=== PATIENT | female | born 1945 | race Caucasian/White ===

== ENCOUNTER → 2017-12-08 | Outpatient (CLI) | payer MEDICARE, OTHER ==
--- NOTE | 2017-12-13 17:58 | WOMENS IMAGING REPORT ---
EXAM DESCRIPTION: 3D SCREENING MAMMO BILAT COMPLETED DATE/TIME: 12/08/2017 1:54 pm REASON FOR STUDY: ENCNTR SCREEN MAMMOGRAM FOR MALIGNANT NEOPLASM OF BREAST Z12.31 ENCNTR SCREEN RUTH ANN MOGRAM FOR MALIGNANT NEOPLASM OF ADOLFO COMPARISON: 04/20/2016 TECHNIQUE: Standard craniocaudal and mediolateral oblique views of each breast recorded using digita l acquisition and breast tomosynthesis. LIMITATIONS: None. FINDINGS: Findings present which are benign by mammographic criteria. No suspicious masses, calcifi cations or architectural distortion. Pertinent benign findings: Stable benign bilateral breast parenchymal calcifications and small parenc hymal nodules. Read with the assistance of CAD. .[facility] - R2 Cenova Version 1.3 .[facility] Imaging - R2 Cenova Version 1.3 .[facility] Imaging - R2 Cenova Version 2.4 .[facility] - R2 Cenova Version 2.4 .[facility] - R2 [employer] Version 9.2 Benign mammographic findings may include one or more of the following: Smooth masses, popcorn/rim/co arse calcifications, asymmetries, post-procedure changes, and lesions with long-standing stability. IMPRESSION: BENIGN MAMMOGRAPHIC FINDINGS. BIRADS 2 BREAST DENSITY: b. There are scattered areas of fibroglandular density. BIRAD: 2 BENIGN FINDING(S) RECOMMENDATION: RECOMMENDATION: ROUTINE SCREENING Please continue yearly bilateral screening tomosynthesis in December 2018 COMMENT: The patient has been notified of the results by letter per SA requirements. Additional no tification policies are in place for contacting patient with suspicious or incomplete findings. Quality ID #[id number]: The [employer] recommends an annual screening mammogram for women aged 40 years or over. This facility utilizes a reminder system to ensure that all patients receive reminder letters, and/or direct phone calls for appointments. This includes reminders for routine scr eening mammograms, diagnostic mammograms, or other Breast Imaging Interventions when appropriate. Th is patient will be placed in the appropriate reminder system. The [employer] (ACR) has developed recommendations for screening MRI of the breast s in certain patient populations, to be used in conjunction with mammography. Breast MRI surveillanc e may be appropriate for women with more than 20% lifetime risk of developing breast cancer as deter mined by genetic testing, significant family history of the disease, or history of mantle radiation f or Hodgkins Disease. ACR Practice Guidelines 2008. DBT Technology DBT is a type of tomographic mammography. With conventional mammography, overlapping breast tissue ma y make lesions difficult to detect, even with good compression. DBT uses an x-ray tube that rotates a round the breast, taking images at different angles. These images are then combined to create thin sl ices of the breast that the radiologist can view as a 3D reconstruction. The Hologic unit can perform full-field digital mammograms (2D imaging); or DBT (3D imaging); or both, in a combination mode that quickly performs both the mammogram and the tomosynthesis scan while the breast is still compressed. PQRS 6045F: Fluoroscopic imaging is not utilized for breast tomosynthesis. TECHNICAL DOCUMENTATION: FINDING NUMBER: (1) ASSESSMENT: (1) JOB ID: [id number] [employer]- All Rights Reserved Reading location - IP/workstation name: [email or web address]
== END ==
LOC: WI 13:20
PROVIDERS: ATTEND Nurse Practitioner Primary Care
DX: Z12.31 Encounter for screening mammogram for malignant neoplasm of breast (principal)
CPT/HCPCS: 77063; 77067

== ENCOUNTER 2018-08-26 09:09 | Emergency (ER) | payer MEDICARE, OTHER ==
--- NOTE | 2018-08-26 09:45 | ER Document Report ---
ED Medical Screen (RME) - General Chief Complaint: Flank Pain Stated Complaint: BACK PAIN Time Seen by Provider: 08/26/18 09:43 Mode of Arrival: Ambulatory Information source: Patient TRAVEL OUTSIDE OF THE U[place]. IN LAST 30 DAYS: No - HPI Patient complains to provider of: R flank/back pain Onset: Other - Pt. 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 Denies: Hx Coronary Artery Disease, Hx Hypertension Pulmonary Medical History: Reports: Hx Pneumonia - YRS AGO Denies: Hx Asthma, Hx Bronchitis, Hx COPD Neurological Medical History: Denies: Hx Cerebrovascular Accident, Hx Seizures Musculoskeltal Medical History: Denies Hx Arthritis - Immunizations Hx Diphtheria, Pertussis, Tetanus Vaccination: Yes Physical Exam - Vital signs Vitals: Temp Pulse Resp BP Pulse Ox 98.7 F 83 18 135/79 H 99 08/26/18 09:19 08/26/18 09:19 08/26/18 09:19 08/26/18 09:19 08/26/18 09:19 Course - Vital Signs Vital signs: Temp Pulse Resp BP Pulse Ox 98.7 F 83 18 135/79 H 99 08/26/18 09:19 08/26/18 09:19 08/26/18 09:19 08/26/18 09:19 08/26/18 09:19 Doctor's Discharge - Discharge Referrals: AROLDO GAN NP [Primary Care Provider] - Follow up as needed
[2018-08-26] MEDS ORDERED: IBUPROFEN 600 MG TABLET PO ONE (10:50)
[2018-08-26] MEDS ORDERED: OXYCODONE-ACETAMINOPHEN 5-325 MG TABLET PO ONE (10:50)
--- NOTE | 2018-08-26 10:51 | ER Document Report ---
ED General - General Chief Complaint: Flank Pain Stated Complaint: BACK PAIN Time Seen by Provider: 08/26/18 09:43 Mode of Arrival: Ambulatory Notes: 73-year-old female patient emergency department chief complaint of right flank pain. Patient states pain is been present for about 3 days. Radiating from the back around to the front. No fever or chills. Generally does not feel well though. Noticed this morning that she had a rash on the back and then on the right front chest but thought it was related to the heating pad she has been wearing. Has not put any lotions or creams on her back or chest. TRAVEL OUTSIDE OF THE [place] IN LAST 30 DAYS: No - HPI Onset: Other - 3 days ago Onset/Duration: Gradual, Constant, Worse Quality of pain: Achy Severity: Moderate Pain Level: 3 Associated symptoms: None - Related Data Allergies/Adverse Reactions: erythromycin base Allergy (Verified 08/26/18 09:11) STOMACH PAIN Sulfa (Sulfonamide Antibiotics) Allergy (Verified 08/26/18 09:11) Past Medical History - General Information source: Patient - Social History Smoking Status: Current Every Day Smoker Chew tobacco use (# tins/day): No Frequency of alcohol use: None Drug Abuse: None Family History: Reviewed & Not Pertinent Patient has suicidal ideation: No Patient has homicidal ideation: No - Past Medical History Cardiac Medical History: Reports: Hx Heart Attack - 2015 MINOR HEART ATTACK R/T STRESS PER PT Denies: Hx Coronary Artery Disease, Hx Hypertension Pulmonary Medical History: Reports: Hx Pneumonia - YRS AGO Denies: Hx Asthma, Hx Bronchitis, Hx COPD Neurological Medical History: Denies: Hx Cerebrovascular Accident, Hx Seizures Renal/ Medical History: Denies: Hx Peritoneal Dialysis Musculoskeletal Medical History: Denies Hx Arthritis - Immunizations Hx Diphtheria, Pertussis, Tetanus Vaccination: Yes Hx Pneumococcal Vaccination: 09/12/16 Review of Systems - Review of Systems Notes: Constitutional: denies: Chills, Diaphoresis, Fever, Malaise, Weakness EENT: denies: Eye discharge, Blurred vision, Tearing, Double vision, Nose congestion, Nose discharge, Throat swelling, Mouth pain Cardiovascular: denies: Palpitations, Heart racing, Orthopnea, Dyspnea, Chest pain Respiratory: denies: Cough, Hurts to breathe, Wheezing, Shortness of breath Gastrointestinal: denies: Abdominal pain, Diarrhea, Nausea, Vomiting, Black stools, bright red blood in stool Genitourinary: denies: Burning, Dysuria, Discharge, Frequency, Flank pain, Hematuria Musculoskeletal: denies: Joint pain, Joint swelling, Muscle pain, Muscle stiffness,. Positive for right-sided back pain Hematologic/Lymphatic: denies: Anemia, Easy bleeding, Easy bruising, Blood clots Neurological/Psychological: denies: Confusion, Dementia, Depression, Loss of consciousness Skin: No lesions, no masses, no skin breakdown, no abscesses Physical Exam - Vital signs Vitals: Temp Pulse Resp BP Pulse Ox 98.7 F 83 18 135/79 H 99 08/26/18 09:19 08/26/18 09:19 08/26/18 09:19 08/26/18 09:19 08/26/18 09:19 Interpretation: Normal - General General appearance: Appears well, Alert - HEENT Head: Normocephalic, Atraumatic Eyes: Normal Pupils: PERRL - Respiratory Respiratory status: No respiratory distress Chest status: Nontender Breath sounds: Normal Chest palpation: Normal - Cardiovascular Rhythm: Regular Heart sounds: Normal auscultation Murmur: No - Abdominal Inspection: Normal Distension: No distension Bowel sounds: Normal Tenderness: Nontender Organomegaly: No organomegaly - Back Back: Normal, Nontender - Extremities General upper extremity: Normal inspection, Nontender, Normal color, Normal ROM , Normal temperature General lower extremity: Normal inspection, Nontender, Normal color, Normal ROM , Normal temperature, Normal weight bearing. No: Anastasiya's sign - Neurological Neuro grossly intact: Yes Cognition: Normal Orientation: AAOx4 Mitchell Coma Scale Eye Opening: Spontaneous Mitchell Coma Scale Verbal: Oriented [place] Coma Scale Motor: Obeys Commands Mitchell Coma Scale Total: 15 Speech: Normal Motor strength normal: LUE, RUE, LLE, RLE Sensory: Normal - Psychological Associated symptoms: Normal affect, Normal mood - Skin Skin Temperature: Warm Skin Moisture: Dry Skin Color: Other - There are multiple areas that appear to be red and acute early vesicular lesions consistent with what you would see with shingles. Course - Re-evaluation Re-evalutation: 08/26/18 11:44 CT scan was ordered from the front and performed prior to me evaluating her. My evaluation is consistent with shingles. Will check her urine as well. I have given her pain medication. Likely will start her on some antivirals. 08/26/18 11:[address] 08/26/18 09:43 IMPRESSION: Mild bilateral UPJ dilatation, probably congenital. No urinary tract stones identified. 08/26/18 12:40 Laboratory 08/26/18 10:50 Urine Color YELLOW Urine Appearance SLIGHTLY-CLOUDY Urine pH 6.0 Ur Specific [place] 1.017 Urine Protein NEGATIVE Urine Glucose (UA) NEGATIVE Urine Ketones NEGATIVE Urine Blood NEGATIVE Urine Nitrite NEGATIVE Urine Bilirubin NEGATIVE Urine Urobilinogen 2.0 H Ur Leukocyte Esterase LARGE H Urine WBC (Auto) 17 Urine RBC (Auto) 3 Squamous Epi Cells Auto 1 Urine Mucus (Auto) MANY Urine Ascorbic Acid NEGATIVE - Vital Signs Vital signs: Temp Pulse Resp BP Pulse Ox 98.7 F 83 18 135/79 H 99 08/26/18 09:19 08/26/18 09:19 08/26/18 09:19 08/26/18 09:19 08/26/18 09:19 - Laboratory Laboratory results interpreted by me: 08/26/18 10:50 Urine Urobilinogen 2.0 H Ur Leukocyte Esterase LARGE H Discharge - Discharge Clinical Impression: Shingles rash Qualifiers: Herpes zoster complications: without complications Qualified Code(s): B02.9 - Zoster without complications Urinary tract infection Qualifiers: Urinary tract infection type: acute cystitis Hematuria presence: without hematuria Qualified Code(s): N30.00 - Acute cystitis without hematuria Condition: Good Disposition: HOME, SELF-CARE Instructions: Shingles ([facility]), Urinary Tract Infection ([facility]) Prescriptions: Hydrocodone/Acetaminophen [[place] 5-325 mg Tablet] 1 tab PO TID 5 Days #15 tablet Nitrofurantoin/Nitrofuran Mac [Macrobid 100 mg Capsule] 1 tab PO BID #20 capsule Valacyclovir HCl [Valtrex] 1,000 mg PO Q8H 7 Days #21 tablet Referrals: AROLDO GAN NP [Primary Care Provider] - Follow up in 3-5 days
--- NOTE | 2018-08-26 11:00 | RADIOLOGY REPORT (SQ) ---
EXAM DESCRIPTION: CT LTD RENAL STONE PROTOCOL ON COMPLETED DATE/TIME: 08/26/2018 10:44 am REASON FOR STUDY: R flank pain COMPARISON: None. TECHNIQUE: CT scan of the abdomen and pelvis performed without intravenous or oral contrast. Images reviewed with lung, soft tissue, and bone windows. Reconstructed coronal and sagittal MPR images revi ewed. All images stored on PACS. All CT scanners at this facility use dose modulation, iterative reconstruction, and/or weight based d osing when appropriate to reduce radiation dose to as low as reasonably achievable (ALARA). [facility]: Dose Right [facility]: CareDose [facility]: Dose Right [facility]: Teradose 4D [facility]: Smart Blyk RADIATION DOSE: CT Rad equipment meets quality standard of care and radiation dose reduction techniq ues were employed. CTDIvol: 4.9 mGy. DLP: 271 mGy-cm.mGy. LIMITATIONS: None. FINDINGS: LOWER CHEST: No significant findings. No nodules or infiltrates. NON-CONTRASTED LIVER, SPLEEN, ADRENALS: Evaluation limited by lack of IV contrast. No identified sign ificant masses. PANCREAS: No masses. No peripancreatic inflammatory changes. GALLBLADDER: No identified stones by CT criteria. No inflammatory changes to suggest cholecystitis. RIGHT KIDNEY AND URETER: No suspicious masses. Assessment limited by lack of IV contrast. No signif icant calcifications. Mild dilatation of the UPJ which is symmetric with the left. LEFT KIDNEY AND URETER: No suspicious masses. Assessment limited by lack of IV contrast. No signifi cant calcifications. Mild dilatation of the UPJ. AORTA AND RETROPERITONEUM: No aneurysm. No retroperitoneal masses or adenopathy. BOWEL AND PERITONEAL CAVITY: No obvious masses or inflammatory changes. No free fluid. APPENDIX: Surgically absent. PELVIS, BLADDER, AND ABDOMINAL WALL:No abnormal masses. No free fluid. Bladder normal. BONES: No significant findings. OTHER: No other significant finding. IMPRESSION: Mild bilateral UPJ dilatation, probably congenital. No urinary tract stones identified. COMMENT: Quality ID # [id number]: Final reports with documentation of one or more dose reduction techniques (e.g., Automated exposure control, adjustment of the mA and/or kV according to patient size, use of iterative reconstruction technique) TECHNICAL DOCUMENTATION: JOB ID: [id number] [employer]- All Rights Reserved Reading location - IP/workstation name: [email or web address]
[2018-08-26 12:26] LABS: APPEARANCE,URINE SLIGHTLY-CLOUDY; BILIRUBIN,URINE NEGATIVE (NEGATIVE); COLOR,URINE YELLOW; GLUCOSE, URINE NEGATIVE (NEGATIVE); KETONES,URINE NEGATIVE (NEGATIVE); LEUKOCYTE ESTERASE,URINE LARGE (NEGATIVE); NITRITE,URINE NEGATIVE (NEGATIVE); PROTEIN,URINE NEGATIVE (NEGATIVE); URINE SPECIFIC GRAVITY 1.017
[2018-08-26] MEDS ORDERED: NITROFURANTOIN MONOHYD/M-CRYST 100 MG CAPSULE PO ONE (12:41)
[2018-08-26 13:49] VITALS: BP 146/96
== END 2018-08-26 13:56 | disposition home or self-care (01) ==
LOC: ER 09:09
DX: B02.9 Zoster without complications (principal); N30.00 Acute cystitis without hematuria; R10.9 Unspecified abdominal pain; M54.9 Dorsalgia, unspecified; F17.200 Nicotine dependence, unspecified, uncomplicated; I25.2 Old myocardial infarction
CPT/HCPCS: 99284; 81001; 76380; A9270 ×3; J8499

== ENCOUNTER 2019-09-09 21:19 | Inpatient (IN) | payer MEDICARE, OTHER ==
--- NOTE | 2019-09-09 22:50 | RADIOLOGY REPORT (SQ) ---
EXAM DESCRIPTION: XR HIP 2 OR MORE VIEWS COMPLETED DATE/TME: 09/09/2019 21:23 CLINICAL HISTORY: 74 years, Female, fall with injury and pain COMPARISON: None. NUMBER OF VIEWS: 2 TECHNIQUE: AP pelvis single view left hip LIMITATIONS: None. FINDINGS: Osteopenia. Left subcapital hip fracture with slight varus angulation. No dislocation. Rotation of the greater trochanter. IMPRESSION: Left subcapital hip fracture as above copyright 2010 [employer]- All Rights Reserved
--- NOTE | 2019-09-09 22:59 | RADIOLOGY REPORT (SQ) ---
EXAM DESCRIPTION: XR SHOULDER 2 OR MORE VIEWS COMPLETED DATE/TME: 09/09/2019 21:23 CLINICAL HISTORY: 74 years, Female, fall with injury and pain COMPARISON: None. NUMBER OF VIEWS: 1 TECHNIQUE: Single view left shoulder LIMITATIONS: None. FINDINGS: Inferior dislocation of the humeral head relative to the bony glenoid. Osteopenia. Displaced fracture deformity of the greater tuberosity of the humerus. IMPRESSION: Inferior dislocation of the humerus with displaced fracture of the greater tuberosity copyright 2010 [employer]- All Rights Reserved
[2019-09-09] MEDS ORDERED: ONDANSETRON HCL INJ/PF 4 MG/2 ML SDV IV ONE (23:18)
[2019-09-09] MEDS ORDERED: MORPHINE SULFATE 10 MG/ML INJ IV ONE (23:18)
[2019-09-09] MEDS ORDERED: ZOLPIDEM TARTRATE 5 MG TABLET PO PRN (23:52)
[2019-09-09] MEDS ORDERED: MAG HYDROX/AL HYDROX/SIMETH SUSP 30 ML UDCUP PO PRN (23:52)
--- NOTE | 2019-09-09 23:56 | ER Document Report ---
ED Fall - General Chief Complaint: Fall Injury Stated Complaint: FALL Time Seen by Provider: 09/09/19 22:50 Mode of Arrival: Medic TRAVEL OUTSIDE OF THE [place] IN LAST 30 DAYS: No - HPI Occurred: Just prior to arrival Where: Indoors Context: Tripped Location of injury/pain: Hip - Patient reports she was at a friend's house and actually is unsure what caused her to fall other than she believes there may hav e been something she tripped on in the house. There was no loss of consciousness head or neck injury. Denies any back pain patient reports she has pain in her left. Shoulder and also on her left hip., Shoulder Quality of pain: Achy Severity: Severe Pain Level: 5 Prehospital interventions: Other - There are no open wounds. Patient has greatest tenderness noted in left shoulder and is unable to have range of motion of her left shoulder. Also unable to stand and walk. 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 Denies: Hx Coronary Artery Disease, Hx Hypertension Pulmonary Medical History: Reports: Hx Pneumonia - YRS AGO Denies: Hx Asthma, Hx Bronchitis, Hx COPD Neurological Medical History: Denies: Hx Cerebrovascular Accident, Hx Seizures Renal/ Medical History: Denies: Hx Peritoneal Dialysis Musculoskeletal Medical History: Denies Hx Arthritis - Immunizations Hx Diphtheria, Pertussis, Tetanus Vaccination: Yes Hx Pneumococcal Vaccination: 09/12/16 Review of Systems - Review of Systems Constitutional: No symptoms reported EENT: No symptoms reported, See HPI Cardiovascular: No symptoms reported Respiratory: No symptoms reported Gastrointestinal: No symptoms reported Genitourinary: No symptoms reported Female Genitourinary: No symptoms reported Musculoskeletal: See HPI Skin: No symptoms reported Hematologic/Lymphatic: No symptoms reported Neurological/Psychological: No symptoms reported Physical Exam - Vital signs Vitals: Pulse Ox 97 09/09/19 21:27 Interpretation: Normal - General General appearance: Appears well, Alert - HEENT Head: Normocephalic, Atraumatic Eyes: Normal Pupils: PERRL - Respiratory Respiratory status: No respiratory distress Chest status: Nontender Breath sounds: Normal Chest palpation: Normal - Cardiovascular Rhythm: Regular Heart sounds: Normal auscultation Murmur: No - Abdominal Inspection: Normal Distension: No distension Bowel sounds: Normal Tenderness: Nontender Organomegaly: No organomegaly - Back Back: Normal, Nontender - Extremities General upper extremity: Normal inspection, Nontender, Normal color, Normal ROM, Normal temperature General lower extremity: Normal inspection, Nontender, Normal color, Normal ROM, Normal temperature, Normal weight bearing, Other - Left hip deformed and moderately tender. No skin break noted.. No: Anastasiya's sign Shoulder: Deformity, Limited ROM, Other - Left shoulder with obvious deformity and decreased range of motion. Severely tender to palpation and movement. - Neurological Neuro grossly intact: Yes Cognition: Normal Orientation: AAOx4 Mitchell Coma Scale Eye Opening: Spontaneous [place] Coma Scale Verbal: Oriented Mitchell Coma Scale Motor: Obeys Commands [place] Coma Scale Total: 15 Speech: Normal Motor strength normal: LUE, RUE, LLE, RLE Sensory: Normal - Psychological Associated symptoms: Normal affect, Normal mood - Skin Skin Temperature: Warm Skin Moisture: Dry Skin Color: Normal Course - Re-evaluation Re-evalutation: 09/10/19 01:56 Successful closed reduction of left inferior dislocated shoulder. Post x-rays showed humerus and glenoid fossa correctly. Patient tolerated procedure well with no complications. - Vital Signs Vital signs: Temp Pulse Resp BP Pulse Ox 98.3 F 85 18 109/81 95 09/10/19 02:47 09/10/19 02:47 09/10/19 02:47 09/10/19 02:47 09/10/19 02:47 - Laboratory Result Diagrams: 09/09/19 23:56 09/09/19 23:56 Laboratory results interpreted by me: 09/09/19 09/09/19 09/10/19 23:56 23:56 00:12 WBC 11.1 H MCV 99 H Absolute Neuts (auto) 8.9 H Seg Neutrophils % 80.6 H Carbon Dioxide 21 L Glucose 116 H Creatine Kinase 220 H Urine Glucose (UA) 50 H Urine Blood SMALL H Ur Leukocyte Esterase MODERATE H - Diagnostic Test Radiology reviewed: Image reviewed, Reports reviewed Procedures - Conscious Sedation Conscious sedation Consent obtained: Yes Prior complications: Procedural sedation Normal healthy pt.: P1. - ASA Classification Airway Evaluation: Normal anatomy, Other - Edentulous Mallampati Classification: Class 1 Used during procedure: IV access obtained, Pulse ox on pt. Medications administered: Ketamine Reversal agents: None I personally performed/intraservice time: Sedation, 30 min or less Complications: No Notes: Under conscious sedation using IV ketamine patient had a close reduction of her left shoulder dislocation and fracture. Patient tolerated procedure well and had no complications hemodynamically or respiratory justice. Post procedure x-ray showed normal alignment and reduction of the dislocation of the left shoulder. Also of note was an improvement in the proximity of the fracture of the lateral greater tuberosity fracture.. Discharge - Discharge Clinical Impression: Hip fracture, left, Shoulder fracture, left, Dislocated shoulder Disposition: ADMITTED INPATIENT Admitting Provider: henderson Unit Admitted: Surgical Floor
--- NOTE | 2019-09-10 | RADIOLOGY REPORT (SQ) ---
EXAM DESCRIPTION: XR CHEST 1 VIEW COMPLETED DATE/TME: 09/09/2019 23:13 CLINICAL HISTORY: 74 years, Female, trauma COMPARISON: None. NUMBER OF VIEWS: 1 TECHNIQUE: Portable chest LIMITATIONS: None. FINDINGS: Heart size normal. Osteopenia. Lungs clear. No pneumothorax IMPRESSION: No acute cardiopulmonary process copyright 2010 [employer]- All Rights Reserved
[2019-09-10] MEDS ORDERED: KETAMINE HCL INJ 500 MG/10 ML VIAL IV ONE ×2 (00:04→01:11)
[2019-09-10] MEDS ORDERED: TRAMADOL HCL 50 MG TABLET PO PRN (00:05)
[2019-09-10] MEDS ORDERED: OXYCODONE HCL IR 5 MG TABLET PO PRN (00:06)
[2019-09-10] MEDS ORDERED: MORPHINE SULFATE 10 MG/ML INJ IV PRN (00:08)
[2019-09-10] MEDS ORDERED: DIPHENHYDRAMINE HCL 50 MG CAPSULE PO PRN ×2 (00:09→00:30)
[2019-09-10 00:41] LABS: ABSOLUTE BASOPHILS # (AUTO) 0.1 10^3/uL (0.0-0.2); ABSOLUTE LYMPHOCYTES (AUTO) 1.6 10^3/uL (0.5-4.7); ABSOLUTE MONOCYTES (AUTO) 0.5 10^3/uL (0.1-1.4); ABSOLUTE NEUT (AUTO) 8.9 10^3/uL (1.7-8.2); BASOPHILS % (AUTO) 0.5 % (0-2); EOSINOPHILS % (AUTO) 0.2 % (0-6); HEMATOCRIT 38.4 % (36.0-47.0); HEMOGLOBIN 12.9 g/dL (12.0-15.5); LYMPHOCYTES % (AUTO) 14.2 % (13-45); MEAN CORPUSCULAR HEMOGLOBIN 33.4 pg (27.0-33.4); MEAN CORPUSCULAR HGB CONC 33.7 g/dL (32.0-36.0); MEAN CORPUSCULAR VOLUME 99 fl (80-97); MONOCYTES % (AUTO) 4.5 % (3-13); PLATELET COUNT 274 10^3/uL (150-450); RED BLOOD COUNT 3.87 10^6/uL (3.72-5.28); RED CELL DISTRIBUTION WIDTH 13.9 % (11.5-14.0); SEGMENTED NEUTROPHILS % (AUTO) 80.6 % (42-78); TOTAL CELLS COUNTED % (AUTO) 100 %; WHITE BLOOD COUNT 11.1 10^3/uL (4.0-10.5)
[2019-09-10 00:54] LABS: ALBUMIN 4.2 g/dL (3.5-5.0); ALCOHOL 111 mg/dL (NONE DETECTED); ALKALINE PHOSPHATASE 85 U/L (38-126); ANION GAP 15 (5-19); ASPARTATE AMINO TRANSFERASE 27 U/L (14-36); BILIRUBIN,DIRECT 0.2 mg/dL (0.0-0.4); BILIRUBIN,TOTAL 0.2 mg/dL (0.2-1.3); BLOOD UREA NITROGEN 14 mg/dL (7-20); CALCIUM 9.2 mg/dL (8.4-10.2); CARBON DIOXIDE 21 mmol/L (22-30); CHLORIDE 105 mmol/L (98-107); CREATINE KINASE 220 U/L (30-135); GLUCOSE 116 mg/dL (75-110); POTASSIUM 4.1 mmol/L (3.6-5.0)
[2019-09-10 00:56] LABS: INTERNATIONAL RATION (INR) 0.97; PARTIAL THROMBOPLASTIN TIME 31.4 SEC (23.5-35.8); PROTHROMBIN TIME 12.9 SEC (11.4-15.4)
[2019-09-10 01:10] LABS: APPEARANCE,URINE CLEAR; BILIRUBIN,URINE NEGATIVE (NEGATIVE); COLOR,URINE STRAW; GLUCOSE, URINE 50 mg/dL (NEGATIVE); KETONES,URINE NEGATIVE (NEGATIVE); LEUKOCYTE ESTERASE,URINE MODERATE (NEGATIVE); NITRITE,URINE NEGATIVE (NEGATIVE); PROTEIN,URINE NEGATIVE (NEGATIVE); URINE SPECIFIC GRAVITY 1.006; UROBILINOGEN,URINE NEGATIVE mg/dL (<2.0)
[2019-09-10 01:17] LABS: URINE AMPHETAMINES SCREEN NEGATIVE; URINE BARBITURATES SCREEN NEGATIVE; URINE BENZODIAZEPINES SCREEN NEGATIVE; URINE COCAINE SCREEN NEGATIVE; URINE MARIJUANA (THC) SCREEN NEGATIVE; URINE METHADONE SCREEN NEGATIVE; URINE PHENCYCLIDINE SCREEN NEGATIVE
--- NOTE | 2019-09-10 01:53 | RADIOLOGY REPORT (SQ) ---
EXAM: X-ray shoulder one view CLINICAL DATA: Status post reduction left shoulder TECHNICAL DATA: A single portable AP view of the left shoulder was performed on 09/10/2019 at 1:26 AM. COMPARISONS: 09/09/2019 at 10:17 PM FINDINGS: When compared to the prior study, there has been interval reduction of the left shoulder dislocation. Again demonstrated is a mildly displaced fracture through the greater tuberosity. The acromioclavicular joint is intact. No significant degenerative or arthritic changes are identified. There are no pathologic lytic or sclerotic bone lesions. Bone mineralization is slightly diminished. No focal soft tissue abnormalities are identified. IMPRESSION: 1. Interval reduction of the left shoulder dislocation. 2. Mildly displaced fracture through the greater tuberosity. 3. Mild diffuse bone demineralization.
[2019-09-10] MEDS: MORPHINE SULFATE 10 MG/ML INJ IV PRN ×5 (03:16→23:34)
[2019-09-10] MEDS: ACETAMINOPHEN 325 MG TABLET PO SCH ×5 (03:39→23:35)
[2019-09-10] MEDS: ONDANSETRON 4 MG TAB.RAPDIS PO PRN ×2 (03:47→10:08)
[2019-09-10] MEDS: PANTOPRAZOLE SODIUM 20 MG TABLET.DR PO SCH (05:10)
[2019-09-10] MEDS ORDERED: CEFAZOLIN 2 GM/D5W RTU 2 GM/50 ML RTUPB IV SCH (06:00)
[2019-09-10] MEDS ORDERED: CEFAZOLIN SODIUM 2 GM in DEXTROSE 5%-WATER 100 ML IV PRN (07:17)
--- NOTE | 2019-09-10 08:03 | EKG REPORT ---
SEVERITY:- BORDERLINE ECG - SINUS RHYTHM DIFFUSE NONSPECIFIC ST-T CHANGES : Confirmed by: Duc Marie MD 10-Sep-2019 08:03:00
--- NOTE | 2019-09-10 08:04 | EKG REPORT ---
SEVERITY:- BORDERLINE ECG - SINUS RHYTHM DIFFUSE NONSPECIFIC ST-T CHANGES : Confirmed by: Duc Marie MD 10-Sep-2019 08:03:50
[2019-09-10] MEDS: OXYCODONE HCL IR 5 MG TABLET PO PRN ×3 (10:07→20:53)
[2019-09-10] MEDS: ENOXAPARIN SODIUM INJ 30 MG/0.3 ML DISP.SYRIN SUBCUT SCH (10:08)
[2019-09-10] MEDS: DOCUSATE SODIUM 100 MG CAPSULE PO SCH (10:08)
[2019-09-10] MEDS ORDERED: (PENDING PHARMACY ID) (Lisinopril [Prinivil 2.5 Mg Tablet] 2.5 MG) PO PRN (12:29)
--- NOTE | 2019-09-10 12:41 | Progress Note ---
Provider Note Provider Note: History and Physical Patient Name: DONALD BUSTAMANTE Date of : 1945 Patient Status: Inpatient Attending Provider: MARY MEDINA JR Date: 09/10/19 12:30 Initialization Date: 09/10/19 12:30 Orthopedic History and Physical Date: 09/10/19 Attending physician:: MARY MEDINA JR Provider Consulted: MARY MEDINA JR Consult reason:: History and Physical. History of Present Illness Admission Date/PCP: 09/10/19 00:54 AROLDO GAN NP Patient complains of: Left shoulder pain, left hip pain History of Present Illness: DONALD BUSTAMANTE is a 74 year old female who was brought to the emergency depar tment after a fall at home. She is unsure exactly how she fell but she tripped and landed on her left side, resulting in both severe left shoulder pain and 8 out of 10 left hip pain leading to the inability to ambulate. Pain is constant and worse with any motion. Pain medication improves the pain. She was brought to the hospital and x-rays were taken that demonstrate both a dislocated left shoulder as well as a left intertrochanteric hip fracture. The emergency department reduced her shoulder and subsequent films show a concentrically reduced shoulder. She denies prior loss of consciousness head injury or syncopal-like episode, she denies current altered sensorium. Past Medical History Cardiac Medical History: Reports: Myocardial Infarction - 2015 MINOR HEART ATTACK R/T STRESS PER PT Denies: Coronary Artery Disease, Hypertension Pulmonary Medical History: Reports: Pneumonia - YRS AGO Denies: Asthma, Bronchitis, Chronic Obstructive Pulmonary Disease (COPD) Neurological Medical History: Reports: None Denies: Seizures Endocrine Medical History: Reports: None Renal/ Medical History: Reports: None Malignancy Medical History: Reports: None GI Medical History: Reports: None Musculoskeltal Medical History: Denies: Arthritis Skin Medical History: Reports: None Psychiatric Medical History: Reports: None Traumatic Medical History: Reports: None Hematology: Denies: Anemia Infectious Medical History: Reports: None Social History Lives with: Alone Smoking Status: Current Every Day Smoker Cigarettes Packs Per Day: 1 Number of Years Smokin Frequency of Alcohol Use: Occasional Hx Recreational Drug Use: No - Advance Directive Resuscitation Status: Full Code Family History Family History: Reviewed & Not Pertinent Parental Family History Reviewed: No Children Family History Reviewed: NA Sibling(s) Family History Reviewed.: NA Medication/Allergy Home Medications: Atorvastatin Calcium [Lipitor 10 mg Tablet] 10 mg PO ASDIR 02/17/18 Ibuprofen 200 mg PO DAILYP PRN 09/10/19 Lisinopril [Prinivil 2.5 mg Tablet] 2.5 mg PO DAILYP PRN 09/10/19 Allergies/Adverse Reactions: erythromycin base Allergy (Verified 08/26/18 09:11) STOMACH PAIN Sulfa (Sulfonamide Antibiotics) Allergy (Verified 08/26/18 09:11) Review of Systems Review of Systems: Constitutional: ABSENT: anorexia, chills, night sweats Cardiovascular: ABSENT: chest pain Respiratory: ABSENT: dyspnea Gastrointestinal: ABSENT: vomiting Genitourinary: ABSENT: dysuria Integumentary: ABSENT: rash Neurological: ABSENT: confusion, memory loss, numbness Psychiatric: ABSENT: hallucinations Hematologic/Lymphatic: ABSENT: easy bleeding Physical Exam Vital Signs: Temp Pulse Resp BP Pulse Ox 97.2 F 83 19 159/74 H 96 09/10/19 11:03 09/10/19 11:03 09/10/19 11:03 09/10/19 11:03 09/10/19 11:03 Intake & Output 09/09/19 09/10/19 09/11/19 06:59 06:59 06:59 Output Total 550 Balance -550 Weight 60.3 kg Physical Exam: General appearance: PRESENT: no acute distress, cooperative, well-nourished Head exam: PRESENT: atraumatic, normocephalic Eye exam: PRESENT: EOMI Ear exam: PRESENT: normal external ear exam Mouth exam: PRESENT: neck supple Neck exam: ABSENT: tracheal deviation Respiratory exam: PRESENT: symmetrical, unlabored. ABSENT: accessory muscle use, wheezes Pulses: PRESENT: normal radial pulses, normal dorsalis pedis pulse Vascular exam: PRESENT: normal capillary refill GI/Abdominal exam: ABSENT: distended, firm Extremities exam: PRESENT: full ROM of bilateral shoulders, elbows wrists, knees, hips and ankles without pain Musculoskeletal exam: PRESENT: full ROM, normal inspection of all 4 extremities aside from that noted below. Neurological exam: PRESENT: alert, awake, oriented to person, oriented to place, oriented to time Psychiatric exam: PRESENT: appropriate affect. ABSENT: agitated Focused psych exam: ABSENT: catatonic Skin exam: PRESENT: intact. ABSENT: dry All as above aside from that noted in the HPI and the following: LUE Left upper extremity sensation grossly intact to radial median and ulnar nerve. Left upper extremity motor function grossly intact to radian median ulnar nerve AIN and PIN Pulses 2+, capillary refill less than 2 seconds No deformity noted full range of motion of the elbow wrist and fingers without pain Compartments soft, no tenderness to palpation skin intact Left shoulder was in sling at time of exam, some tenderness to palpation about the shoulder. Left lower extremity -Pulses 2+ distally -Compartments soft -Sensation grossly intact to L3-4-5 S1 -Motor grossly intact to EHL TA gastroc and quad -Pain with any range of motion of the left hip Results Laboratory Results: 09/09/19 23:56 09/09/19 23:56 09/09/19 09/09/19 09/09/19 23:56 23:56 23:56 WBC 11.1 H RBC 3.87 Hgb 12.9 Hct 38.4 MCV 99 H MCH 33.4 MCHC 33.7 RDW 13.9 Plt Count 274 Seg Neutrophils % 80.6 H Sodium 140.5 Potassium 4.1 Chloride 105 Carbon Dioxide 21 L Anion Gap 15 BUN 14 Creatinine 0.69 Est GFR ( Amer) > 60 Glucose 116 H Calcium 9.2 Total Bilirubin 0.2 AST 27 Alkaline Phosphatase 85 Total Protein 7.0 Albumin 4.2 Urine Color Urine Appearance Urine pH Ur Specific [place] Urine Protein Urine Glucose (UA) Urine Ketones Urine Blood Urine Nitrite Ur Leukocyte Esterase Urine WBC (Auto) Urine RBC (Auto) Blood Type O POSITIVE Antibody Screen NEGATIVE 09/10/19 00:12 WBC RBC Hgb Hct MCV MCH MCHC RDW Plt Count Seg Neutrophils % Sodium Potassium Chloride Carbon Dioxide Anion Gap BUN Creatinine Est GFR ( Amer) Glucose Calcium Total Bilirubin AST Alkaline Phosphatase Total Protein Albumin Urine Color STRAW Urine Appearance CLEAR Urine pH 5.0 Ur Specific [place] 1.006 Urine Protein NEGATIVE Urine Glucose (UA) 50 H Urine Ketones NEGATIVE Urine Blood SMALL H Urine Nitrite NEGATIVE Ur Leukocyte Esterase MODERATE H Urine WBC (Auto) 6 Urine RBC (Auto) 7 Blood Type Antibody Screen 09/09/19 09/09/19 23:56 23:56 Creatine Kinase 220 H Troponin I < 0.012 Impressions: Hip X-Ray 09/09/19 21:23 IMPRESSION: Left subcapital hip fracture as above copyright 2010 [email or web address]- All Rights Reserved Chest X-Ray 09/09/19 23:13 IMPRESSION: No acute cardiopulmonary process copyright 2010 [email or web address]- All Rights Reserved Shoulder X-Ray 09/10/19 01:20 IMPRESSION: 1. Interval reduction of the left shoulder dislocation. 2. Mildly displaced fracture through the greater tuberosity. 3. Mild diffuse bone demineralization. Assessment & Plan - Diagnosis (1) Hip fracture, left Plan: At this time we will plan for left hip hemiarthroplasty to be performed on 09/11/2019 after a medical evaluation and clearance. -The patient is to be made n.p.o. at midnight tonight -Bed rest -Hold all chemical DVT prophylaxis at midnight tonight -Ancef on-call for the OR -Multimodal pain management (2) Shoulder fracture, left Plan: She has a left shoulder fracture dislocation with a greater tuberosity fracture. This appeared to reduce well with her shoulder reduction and may heal in position. We will allow her to continue in the sling until further evaluation. I will get an axillary view to confirm reduction
[2019-09-10] MEDS ORDERED: IPRATROPIUM/ALBUTEROL 0.5-2.5 MG/3 ML AMPUL NEB PRN (12:48)
[2019-09-10] MEDS ORDERED: NICOTINE 7 MG/24 HR PATCH.TD24 TD PRN (12:48)
[2019-09-10] MEDS ORDERED: CEFAZOLIN SODIUM 2 GM in DEXTROSE 5%-WATER 100 ML IV SCH (14:00)
--- NOTE | 2019-09-10 15:40 | PDOC CONSULTATION ---
Consultation Consult Date: 09/10/19 Attending physician:: MARY HOWARD JR Provider Consulted: GREY JONES Consult reason:: pre-op clearance History of Present Illness Admission Date/PCP: 09/10/19 00:54 AROLDO GAN NP Patient complains of: Left hip pain, left shoulder pain, status post fall at home History of Present Illness: DONALD BUSTAMANTE is a 74 year old female who was admitted to the orthopedic service with A left shoulder fracture with dislocation status post reduction in the emergency department and left hip fracture related to mechanical fall at home. Dr. Howard is the attending; hospitalist service was consulted for pre operative clearance and medical management. Dr. Howard plans for left hip hemiarthroplasty 09/11/2019. Patient was seen on morning rounds, she was found resting in bed comfortably on room air. She does admit to smoking 1/2 pack daily. Otherwise, she reports history of remote PR and hyperlipidemia only. Her home medication regimen includes lisinopril 2.5 mg and atorvastatin 10 mg daily. Patient reports that she is capable of walking up a flight of stairs without need for pause. She ambulates independently in from parking lots and in the grocery store without use of assistive devices. She also describes being independent of yard work. Patient reports that she lives alone, independently, but does have numerous friends can provide assistance as needed. She understands that she will likely d/c to SNF for short term rehab. She reports her pain is adequately well controlled at this time; looking forward to surgical repair tomorrow. She has no other questions or concerns at this time. Past Medical History Cardiac Medical History: Reports: Myocardial Infarction - 2015 MINOR HEART ATTACK R/T STRESS PER PT Denies: Coronary Artery Disease, Hypertension Pulmonary Medical History: Reports: Pneumonia - YRS AGO Denies: Asthma, Bronchitis, Chronic Obstructive Pulmonary Disease (COPD) Neurological Medical History: Reports: None Denies: Seizures Endocrine Medical History: Reports: None Renal/ Medical History: Reports: None Malignancy Medical History: Reports: None GI Medical History: Reports: None Musculoskeltal Medical History: Denies: Arthritis Skin Medical History: Reports: None Psychiatric Medical History: Reports: None Traumatic Medical History: Reports: None Hematology: Denies: Anemia Infectious Medical History: Reports: None Past Surgical History Past Surgical History: Reports: None Social History Information Source: Patient Lives with: Alone Smoking Status: Current Every Day Smoker Cigarettes Packs Per Day: 0.5 Number of Years Smokin Frequency of Alcohol Use: Occasional Hx Recreational Drug Use: No Hx Prescription Drug Abuse: No - Advance Directive Resuscitation Status: Full Code Family History Family History: Reviewed & Not Pertinent Parental Family History Reviewed: Yes Children Family History Reviewed: Yes Sibling(s) Family History Reviewed.: Yes Medication/Allergy Home Medications: Atorvastatin Calcium [Lipitor 10 mg Tablet] 10 mg PO ASDIR 02/17/18 Ibuprofen 200 mg PO DAILYP PRN 09/10/19 Lisinopril [Prinivil 2.5 mg Tablet] 2.5 mg PO DAILYP PRN 09/10/19 Allergies/Adverse Reactions: erythromycin base Allergy (Verified 08/26/18 09:11) STOMACH PAIN Sulfa (Sulfonamide Antibiotics) Allergy (Verified 08/26/18 09:11) Review of Systems Constitutional: ABSENT: chills, fever(s), headache(s), weight gain, weight loss Eyes: ABSENT: visual disturbances Ears: ABSENT: hearing changes Cardiovascular: ABSENT: chest pain, dyspnea on exertion, edema, orthropnea, palpitations Respiratory: ABSENT: cough, hemoptysis Gastrointestinal: ABSENT: abdominal pain, constipation, diarrhea, hematemesis, hematochezia, nausea, vomiting Genitourinary: ABSENT: dysuria, hematuria Musculoskeletal: PRESENT: as per HPI, other - Left shoulder pain, left hip pain Integumentary: ABSENT: rash, wounds Neurological: ABSENT: abnormal gait, abnormal speech, confusion, dizziness, focal weakness, syncope Psychiatric: ABSENT: anxiety, depression, homidical ideation, suicidal ideation Endocrine: ABSENT: cold intolerance, heat intolerance, polydipsia, polyuria Hematologic/Lymphatic: ABSENT: easy bleeding, easy bruising Physical Exam Vital Signs: Temp Pulse Resp BP Pulse Ox 97.2 F 83 19 159/74 H 96 09/10/19 11:03 09/10/19 11:03 09/10/19 11:03 09/10/19 11:03 09/10/19 11:03 Intake & Output 09/09/19 09/10/19 09/11/19 06:59 06:59 06:59 Output Total 550 Balance -550 Weight 60.3 kg General appearance: PRESENT: no acute distress, cooperative, well-developed, well-nourished Head exam: PRESENT: atraumatic, normocephalic Eye exam: PRESENT: conjunctiva pink, EOMI, PERRLA. ABSENT: scleral icterus Ear exam: PRESENT: normal external ear exam Mouth exam: PRESENT: moist, tongue midline Neck exam: ABSENT: carotid bruit, JVD, lymphadenopathy, thyromegaly Respiratory exam: PRESENT: clear to auscultation miguelito, symmetrical, unlabored. ABSENT: rales, rhonchi, wheezes Cardiovascular exam: PRESENT: RRR, +S1, +S2. ABSENT: diastolic murmur, rubs, systolic murmur Pulses: PRESENT: normal dorsalis pedis pul Vascular exam: PRESENT: normal capillary refill GI/Abdominal exam: PRESENT: normal bowel sounds, soft. ABSENT: distended, guarding, mass, organolmegaly, rebound, tenderness Rectal exam: PRESENT: deferred Extremities exam: PRESENT: other - LUE to sling, LLE ROM limited r/t pain. ABSENT: calf tenderness, clubbing, pedal edema Neurological exam: PRESENT: alert, awake, oriented to person, oriented to place, oriented to time, oriented to situation, CN II-XII grossly intact. ABSENT: motor sensory deficit Psychiatric exam: PRESENT: appropriate affect, normal mood. ABSENT: homicidal ideation, suicidal ideation Skin exam: PRESENT: dry, intact, warm. ABSENT: cyanosis, rash Results Laboratory Results: 09/09/19 23:56 09/09/19 23:56 09/09/19 09/09/19 09/09/19 23:56 23:56 23:56 WBC 11.1 H RBC 3.87 Hgb 12.9 Hct 38.4 MCV 99 H MCH 33.4 MCHC 33.7 RDW 13.9 Plt Count 274 Seg Neutrophils % 80.6 H Sodium 140.5 Potassium 4.1 Chloride 105 Carbon Dioxide 21 L Anion Gap 15 BUN 14 Creatinine 0.69 Est GFR ( Amer) > 60 Glucose 116 H Calcium 9.2 Total Bilirubin 0.2 AST 27 Alkaline Phosphatase 85 Total Protein 7.0 Albumin 4.2 Urine Color Urine Appearance Urine pH Ur Specific [place] Urine Protein Urine Glucose (UA) Urine Ketones Urine Blood Urine Nitrite Ur Leukocyte Esterase Urine WBC (Auto) Urine RBC (Auto) Blood Type O POSITIVE Antibody Screen NEGATIVE 09/10/19 00:12 WBC RBC Hgb Hct MCV MCH MCHC RDW Plt Count Seg Neutrophils % Sodium Potassium Chloride Carbon Dioxide Anion Gap BUN Creatinine Est GFR ( Amer) Glucose Calcium Total Bilirubin AST Alkaline Phosphatase Total Protein Albumin Urine Color STRAW Urine Appearance CLEAR Urine pH 5.0 Ur Specific [place] 1.006 Urine Protein NEGATIVE Urine Glucose (UA) 50 H Urine Ketones NEGATIVE Urine Blood SMALL H Urine Nitrite NEGATIVE Ur Leukocyte Esterase MODERATE H Urine WBC (Auto) 6 Urine RBC (Auto) 7 Blood Type Antibody Screen 09/09/19 09/09/19 23:56 23:56 Creatine Kinase 220 H Troponin I < 0.012 Impressions: Hip X-Ray 09/09/19 21:23 IMPRESSION: Left subcapital hip fracture as above copyright 2010 [employer] All Rights Reserved Chest X-Ray 09/09/19 23:13 IMPRESSION: No acute cardiopulmonary process copyright 2010 [employer] All Rights Reserved Shoulder X-Ray 09/10/19 01:20 IMPRESSION: 1. Interval reduction of the left shoulder dislocation. 2. Mildly displaced fracture through the greater tuberosity. 3. Mild diffuse bone demineralization. Assessment and Plan - Diagnosis (1) Hip fracture, left Qualifiers: Encounter type: initial encounter Fracture type: closed Qualified Code(s): S72.002A - Fracture of unspecified part of neck of left femur, initial encounter for closed fracture Is this a current diagnosis for this admission?: Yes Plan: Primary management per orthopedic team. N.p.o. after midnight for planned orthopedic repair tomorrow. Analgesics as needed. The patient is independent of ADLs, grocery shopping, and yard work. She does not require pauses to catch her breath and denies chest pain/discomfort during physical activity. Forrest perioperative risk score of 0%. She is at risk for postoperative atelectasis related to her tobacco dependence. Recommend aggressive pulmonary toilet during the intraoperative period. She was acutely intoxicated at time of ED arrival. Denies HX of EtOH dependence/withdrawal. Will monitor closely for evidence otherwise and intervene as indicated. The patient is medically cleared for surgery as she does not have any immediately modifiable risk factors at this time. (2) HLD (hyperlipidemia) Is this a current diagnosis for this admission?: Yes Plan: Patient is placed on a regular diet. Continue home dose statin therapy. (3) Tobacco dependence Is this a current diagnosis for this admission?: Yes Plan: Smoking cessation encouraged. Nicotine replacement therapies provided. Aggressive pulmonary toilet during the intraoperative period; IS and flutter valve to bedside. As needed nebulizer treatments available. (4) Shoulder fracture, left Qualifiers: Encounter type: initial encounter Fracture type: closed Qualified Code(s): S42.92XA - Fracture of left shoulder girdle, part unspecified, initial encounter for closed fracture Is this a current diagnosis for this admission?: Yes Plan: Primary management per orthopedic team. Sling. Analgesics as needed. (5) Dislocated shoulder Qualifiers: Laterality: left Is this a current diagnosis for this admission?: Yes Plan: Status post reduction while in the emergency department. Primary management per orthopedic team. Analgesics as needed. (6) Acute alcohol intoxication Qualifiers: Complication of substance-induced condition: uncomplicated Qualified Code(s): F10.920 - Alcohol use, unspecified with intoxication, uncomplicated Is this a current diagnosis for this admission?: Yes Plan: At time of admission, serum alcohol level of 111. Patient admits to occasional/social alcohol intake. She denies alcohol dependence or history of withdrawal. We will provide daily multivitamin, folic acid, and thiamine supplementation. Monitor for evidence of alcohol dependence/withdrawal. - Time Time Spent with patient: 35 or more minutes Medications reviewed and adjusted accordingly: Yes Anticipated discharge: SNF Within: within 72 hours
[2019-09-10] MEDS: ATORVASTATIN CALCIUM 10 MG TABLET PO SCH (23:35)
[2019-09-11] MEDS: OXYCODONE HCL IR 5 MG TABLET PO PRN ×3 (02:10→21:47)
[2019-09-11 05:14] LABS: HEMOGLOBIN 11.9 g/dL (12.0-15.5)
[2019-09-11] MEDS: MORPHINE SULFATE 10 MG/ML INJ IV PRN ×3 (05:18→17:59)
[2019-09-11] MEDS: PANTOPRAZOLE SODIUM 20 MG TABLET.DR PO SCH (05:26)
[2019-09-11] MEDS: ACETAMINOPHEN 325 MG TABLET PO SCH ×3 (05:26→17:58)
[2019-09-11 05:28] LABS: HEMATOCRIT 34.9 % (36.0-47.0); MEAN CORPUSCULAR HEMOGLOBIN 33.4 pg (27.0-33.4); MEAN CORPUSCULAR HGB CONC 34.1 g/dL (32.0-36.0); MEAN CORPUSCULAR VOLUME 98 fl (80-97); PLATELET COUNT 239 10^3/uL (150-450); RED BLOOD COUNT 3.56 10^6/uL (3.72-5.28); RED CELL DISTRIBUTION WIDTH 13.5 % (11.5-14.0)
[2019-09-11 05:51] LABS: ALBUMIN 3.4 g/dL (3.5-5.0); ALKALINE PHOSPHATASE 71 U/L (38-126); ANION GAP 7 (5-19); ASPARTATE AMINO TRANSFERASE 26 U/L (14-36); BILIRUBIN,DIRECT 0.1 mg/dL (0.0-0.4); BILIRUBIN,TOTAL 0.6 mg/dL (0.2-1.3); BLOOD UREA NITROGEN 19 mg/dL (7-20); CALCIUM 8.9 mg/dL (8.4-10.2); CARBON DIOXIDE 28 mmol/L (22-30); CHLORIDE 103 mmol/L (98-107); GLUCOSE 107 mg/dL (75-110); POTASSIUM 3.9 mmol/L (3.6-5.0); TOTAL PROTEIN 5.7 g/dL (6.3-8.2)
[2019-09-11] MEDS ORDERED: MIDAZOLAM 2 MG/2 ML INJ ONE (06:50)
[2019-09-11] MEDS ORDERED: PROPOFOL INJ 200 MG/20 ML VIAL IV ONE (06:50)
[2019-09-11] MEDS ORDERED: FENTANYL CITRATE INJ/PF 100 MCG/2 ML AMPUL ONE (06:50)
[2019-09-11] MEDS ORDERED: BUPIVACAINE HCL 0.25 % INJ/PF (2.5 MG/1 ML) 30 ML VIAL ONE (07:14)
[2019-09-11] MEDS ORDERED: GENTAMICIN SULFATE INJ 80 MG/2 ML VIAL ONE (07:15)
[2019-09-11] MEDS ORDERED: BACITRACIN INJ 50,000 UNIT VIAL ONE (07:15)
[2019-09-11] MEDS ORDERED: KETOROLAC TROMETHAMINE INJ/PF 30 MG/1 ML SDV ONE (07:15)
[2019-09-11] MEDS ORDERED: VANCOMYCIN HCL INJ 1000 MG VIAL ONE (07:15)
[2019-09-11] MEDS ORDERED: EPINEPHRINE INJ/PF 1 MG/1 ML AMPULE ONE (08:52)
[2019-09-11] MEDS ORDERED: CEFAZOLIN INJ 1 GM VIAL ONE (08:52)
--- NOTE | 2019-09-11 08:57 | RADIOLOGY REPORT (SQ) ---
EXAM DESCRIPTION: SHOULDER LEFT 1 VIEW COMPLETED DATE/TIME: 09/10/2019 7:46 pm REASON FOR STUDY: Shoulder dislocation COMPARISON: 09/10/2019. FINDINGS: Single left axillary view shows no evidence of dislocation. Fracture through the posterol ateral humeral head, as before. TECHNICAL DOCUMENTATION: JOB ID: [id number] Reading location - IP/workstation name: [email or web address]
--- NOTE | 2019-09-11 09:08 | PDOC PROGRESS REPORT ---
Subjective Progress Note for:: 09/11/19 Subjective:: Patient is feeling well this morning. Prepared for surgery. No new complaints or acute events overnight Reason For Visit: LEFT FEMORAL NECK FRACTURE Physical Exam Vital Signs: Temp Pulse Resp BP Pulse Ox 98.2 F 81 16 143/81 H 92 09/11/19 00:21 09/11/19 00:21 09/11/19 00:21 09/11/19 00:21 09/11/19 00:21 Intake & Output 09/10/19 09/11/19 09/12/19 06:59 06:59 06:59 Output Total 550 600 Balance -550 -600 Weight 60.3 kg 60.3 kg Physical Exam: General appearance: PRESENT: no acute distress, cooperative, well-nourished Head exam: PRESENT: atraumatic, normocephalic Eye exam: PRESENT: EOMI Ear exam: PRESENT: normal external ear exam Mouth exam: PRESENT: neck supple Neck exam: ABSENT: tracheal deviation Respiratory exam: PRESENT: symmetrical, unlabored. ABSENT: accessory muscle use, wheezes Pulses: PRESENT: normal radial pulses, normal dorsalis pedis pulse Vascular exam: PRESENT: normal capillary refill GI/Abdominal exam: ABSENT: distended, firm Extremities exam: PRESENT: full ROM of bilateral shoulders, elbows wrists, knees, hips and ankles without pain Musculoskeletal exam: PRESENT: full ROM, normal inspection of all 4 extremities aside from that noted below. Neurological exam: PRESENT: alert, awake, oriented to person, oriented to place, oriented to time Psychiatric exam: PRESENT: appropriate affect. ABSENT: agitated Focused psych exam: ABSENT: catatonic Skin exam: PRESENT: intact. ABSENT: dry All as above aside from that noted in the HPI and the following: LUE Left upper extremity sensation grossly intact to radial median and ulnar nerve. Left upper extremity motor function grossly intact to radian median ulnar nerve AIN and PIN Pulses 2+, capillary refill less than 2 seconds No deformity noted full range of motion of the elbow wrist and fingers without pain Compartments soft, no tenderness to palpation skin intact Left shoulder was in sling at time of exam, some tenderness to palpation about the shoulder. Left lower extremity -Pulses 2+ distally -Compartments soft -Sensation grossly intact to L3-4-5 S1 -Motor grossly intact to EHL TA gastroc and quad -Pain with any range of motion of the left hip Results Laboratory Results: 09/11/19 04:00 09/11/19 04:00 09/11/19 09/11/19 04:00 04:00 WBC 10.0 RBC 3.56 L Hgb 11.9 L Hct 34.9 L MCV 98 H MCH 33.4 MCHC 34.1 RDW 13.5 Plt Count 239 Sodium 138.0 Potassium 3.9 Chloride 103 Carbon Dioxide 28 Anion Gap 7 BUN 19 Creatinine 0.77 Est GFR ( Amer) > 60 Glucose 107 Calcium 8.9 Total Bilirubin 0.6 AST 26 Alkaline Phosphatase 71 Total Protein 5.7 L Albumin 3.4 L 09/09/19 09/09/19 23:56 23:56 Creatine Kinase 220 H Troponin I < 0.012 Impressions: Hip X-Ray 09/09/19 21:23 IMPRESSION: Left subcapital hip fracture as above copyright 2010 [employer]- All Rights Reserved Chest X-Ray 09/09/19 23:13 IMPRESSION: No acute cardiopulmonary process copyright 2010 [employer]- All Rights Reserved Shoulder X-Ray 09/10/19 01:20 IMPRESSION: 1. Interval reduction of the left shoulder dislocation. 2. Mildly displaced fracture through the greater tuberosity. 3. Mild diffuse bone demineralization. Assessment & Plan - Diagnosis (1) Hip fracture, left Qualifiers: Encounter type: initial encounter Fracture type: closed Qualified Code(s): S72.002A - Fracture of unspecified part of neck of left femur, initial encounter for closed fracture Is this a current diagnosis for this admission?: Yes Plan: Plan for operative intervention today. Keep n.p.o. -Ancef preoperatively and for 24 hours perioperatively -We will place her on aspirin for DVT prophylaxis postop -Weightbearing as tolerated after surgery with physical therapy to ambulate same day -We will consult case management for potential placement. -Plan for discharge pending improvement over the few days -Dressing to stay in place until seen in the office (2) Shoulder fracture, left Qualifiers: Encounter type: initial encounter Fracture type: closed Qualified Code(s): S42.92XA - Fracture of left shoulder girdle, part unspecified, initial encounter for closed fracture Is this a current diagnosis for this admission?: Yes - Time Time Spent with patient: Less than 15 minutes
[2019-09-11] MEDS ORDERED: DIPHENHYDRAMINE HCL 50 MG/ML VIAL IV PRN (09:52)
[2019-09-11] MEDS ORDERED: MORPHINE SULFATE 10 MG/ML INJ IV PRN (09:52)
[2019-09-11] MEDS ORDERED: ONDANSETRON HCL INJ/PF 4 MG/2 ML SDV IV PRN (09:52)
[2019-09-11] MEDS ORDERED: MEPERIDINE HCL/PF INJ 25 MG/1 ML DISP.SYRIN IV PRN (09:52)
[2019-09-11] MEDS ORDERED: OXYCODONE-ACETAMINOPHEN 5-325 MG TABLET PO PRN ×2 (09:52)
[2019-09-11] MEDS ORDERED: FENTANYL CITRATE INJ/PF 100 MCG/2 ML AMPUL IV PRN ×3 (09:52)
[2019-09-11] MEDS ORDERED: GENTAMICIN SULFATE INJ 80 MG/2 ML VIAL IV ONE (09:59)
[2019-09-11] MEDS ORDERED: BACITRACIN INJ 50,000 UNIT VIAL IR ONE (09:59)
[2019-09-11] MEDS ORDERED: BUPIVACAINE HCL 0.25 % INJ/PF (2.5 MG/1 ML) 30 ML VIAL INJ ONE (10:00)
[2019-09-11] MEDS ORDERED: KETOROLAC TROMETHAMINE INJ/PF 30 MG/1 ML SDV INJ ONE (10:01)
[2019-09-11] MEDS ORDERED: VANCOMYCIN HCL INJ 1000 MG VIAL IV ONE (10:02)
--- NOTE | 2019-09-11 11:58 | Operative Report ---
Operative Report DATE OF SURGERY: 09/11/19 PREOPERATIVE DIAGNOSIS: Displaced left femoral neck fracture POSTOPERATIVE DIAGNOSIS: Displaced left femoral neck fracture OPERATION: Left hip hemiarthroplasty SURGEON: MARY MEDINA JR ANESTHESIA: Spinal COMPLICATIONS: None ESTIMATED BLOOD LOSS: 150 cc PROCEDURE: The patient was brought to the operative suite where they underwent spinal anesthesia. After adequate anesthesia, they were placed supine on the operating table and prepped and draped in standard sterile fashion. 2 g of Ancef was gi chanel preoperatively. A standard anterior incision was made with cautery through the soft tissue down to the tensor fascia. This was then sharply incised and then bluntly developed until reaching the crossing vasculature. These were cauterized and then with the assistance of retraction the hip capsule was isolated. An incision was made into the hip capsule with cautery and the fracture was exposed. A freshening neck cut was made at the appropriate level for stem implantation. The head was then removed and all debris within the capsule at this point was removed a trial head implant was placed starting with a 47 which had excellent fit. We then turned our attention to the femur which we carefully exposed. No further fracture was noted along the calcar. Starting with a gambling box person we then progressed to a straight reamer and subsequently reamed up to a 9. We followed this with broaching starting with a 3 and finally obtaining excellent fit at a 8. A standard offset trial with a standard neck length was placed on the broach and reduced. This produced excellent fit, no impingement, minimal shuck, equal leg length, and no position of instability throughout a full range of motion. Intraoperative fluoroscopy was utilized to confirm correct stem position. After this the hip was dislocated the trials were removed and the wound was thoroughly irrigated with 2 L of antibiotic imp regnated normal saline. Fresh drape was then placed, all gloves were changed and then the final stem was impacted. The trunnion was cleaned and dried and the bipolar head assembly was then impacted. The acetabulum was irrigated again and visually inspected for any debris and subsequently the hip was reduced. This again taken through a range of motion which demonstrated excellent stability and leg length. The wound was then irrigated with 50% normal saline and iodine solution, after this was evacuated and evaluated for any potential bleeding which was cauterized. The wound was irrigated once more with normal saline impregnated with antibiotics and suctioned and then 1 g of vancomycin was placed inside the joint and along the surrounding soft tissue. The fascia was then closed with barbed absorbable suture followed by local anesthetic injection to the surrounding soft tissue as well as to the hip joint. The adipose layer was also closed with this suture, followed with 2-0 monocryl subcutaneous interrupted and finally 3-0 Monocryl running subcutaneously. Skin glue was applied and once dry a silver dressing was applied followed by a final occlusive dressing. The drapes were removed and the patient was then transferred to PACU in stable condition. The patient can now be made weightbearing as tolerated. She will receive aspirin per my recommendation for DVT prophylaxis for 6 weeks, 325 mg daily. Additionally she should receive coverage for her UTI for the at least the next 7 days. Physical therapy should see her soon as possible to encourage mobilization and activities of daily living training.
[2019-09-11] MEDS: FOLIC ACID 1 MG TABLET PO SCH (12:25)
[2019-09-11] MEDS: MULTIVITAMIN TABLET PO SCH (12:25)
[2019-09-11] MEDS: DOCUSATE SODIUM 100 MG CAPSULE PO SCH (12:25)
[2019-09-11] MEDS: ENOXAPARIN SODIUM INJ 30 MG/0.3 ML DISP.SYRIN SUBCUT SCH (12:25)
[2019-09-11] MEDS: THIAMINE HCL 100 MG TABLET PO SCH (12:26)
--- NOTE | 2019-09-11 12:32 | RADIOLOGY REPORT (SQ) ---
EXAM DESCRIPTION: PELVIS AP COMPLETED DATE/TIME: 09/11/2019 12:02 pm REASON FOR STUDY: post op COMPARISON: None. NUMBER OF VIEWS: One view(s). TECHNIQUE: Digital radiographic images of the left hip post-procedure. LIMITATIONS: None. FINDINGS: BONES: No worrisome or unexpected findings post-procedure. DEVICE: Bi-polar prothesis. Device appears in appropriate location. SOFT TISSUES: No worrisome findings. Expected postoperative soft tissue changes. IMPRESSION: SATISFACTORY POSTOPERATIVE LEFT HIP. TECHNICAL DOCUMENTATION: JOB ID: [id number] [employer]- All Rights Reserved Reading location - IP/workstation name: [email or web address]
--- NOTE | 2019-09-11 12:33 | RADIOLOGY REPORT (SQ) ---
EXAM DESCRIPTION: NO CHG FLUORO; HIP IN OPERATING RM COMPLETED DATE/TIME: 09/11/2019 12:02 pm REASON FOR STUDY: LEFT HIP CLAUDIA ARTHROPLASTY ASST WITH FLUORO IN OR COMPARISON: None. FLUOROSCOPY TIME: 0.1 minutes 1 images saved to PACS. TECHNIQUE: Intra-operative images acquired during surgical procedure to evaluate progress. NUMBER OF IMAGES: 1 LIMITATIONS: Limited intraoperative fluoroscopic images. FINDINGS: Limited intraoperative fluoroscopic image demonstrates evidence of left hip arthroplasty. Please see operative report for detailed description. IMPRESSION: IMAGE(S) OBTAINED DURING PROCEDURE. COMMENT: Quality ID [id number]: Final reports for procedures using fluoroscopy that document radiation exp osure indices, or exposure time and number of fluorographic images (if radiation exposure indices are not available) Please consult full operative report of the attending physician for description of the procedure. TECHNICAL DOCUMENTATION: JOB ID: [id number] [employer]- All Rights Reserved Reading location - IP/workstation name: [email or web address]
--- NOTE | 2019-09-11 12:33 | RADIOLOGY REPORT (SQ) ---
EXAM DESCRIPTION: NO CHG FLUORO; HIP IN OPERATING RM COMPLETED DATE/TIME: 09/11/2019 12:02 pm REASON FOR STUDY: LEFT HIP CLAUDIA ARTHROPLASTY ASST WITH FLUORO IN OR COMPARISON: None. FLUOROSCOPY TIME: 0.1 minutes 1 images saved to PACS. TECHNIQUE: Intra-operative images acquired during surgical procedure to evaluate progress. NUMBER OF IMAGES: 1 LIMITATIONS: Limited intraoperative fluoroscopic images. FINDINGS: Limited intraoperative fluoroscopic image demonstrates evidence of left hip arthroplasty. Please see operative report for detailed description. IMPRESSION: IMAGE(S) OBTAINED DURING PROCEDURE. COMMENT: Quality ID [id number]: Final reports for procedures using fluoroscopy that document radiation exp osure indices, or exposure time and number of fluorographic images (if radiation exposure indices are not available) Please consult full operative report of the attending physician for description of the procedure. TECHNICAL DOCUMENTATION: JOB ID: [id number] [employer]- All Rights Reserved Reading location - IP/workstation name: [email or web address]
[2019-09-11] MEDS: ONDANSETRON 4 MG TAB.RAPDIS PO PRN ×2 (13:08→21:50)
[2019-09-11] MEDS ORDERED: CEFAZOLIN 2 GM/D5W RTU 2 GM/50 ML RTUPB IV SCH (16:00)
[2019-09-11] MEDS: CEFAZOLIN SODIUM 2 GM in DEXTROSE 5%-WATER 100 ML IV SCH (18:24)
--- NOTE | 2019-09-11 19:00 | PDOC PROGRESS REPORT ---
Subjective Progress Note for:: 09/11/19 Subjective:: Patient is a 74 year old female with a past medical history of [place] and PNA who was admitted 09/09/19 for left hip fracture and underwent hip arthroplasty by Dr. Howard today. Patient was seen on afternoon rounds while preparing to work with physical therapy for the first time postoperatively. She was lying in bed, comfortably, on room air. She had no specific questions or concerns at the time of my visit, though understandably distracted by physical therapy activity. Denies chest pain, shortness breath, abdominal pain, nausea and vomiting. No other questions or concerns at this time. No concerns per nursing. Reason For Visit: LEFT FEMORAL NECK FRACTURE Physical Exam Vital Signs: Temp Pulse Resp BP Pulse Ox 98.4 F 79 15 139/74 H 91 L 09/11/19 16:30 09/11/19 16:30 09/11/19 16:30 09/11/19 16:30 09/11/19 16:30 Intake & Output 09/10/19 09/11/19 09/12/19 06:59 06:59 06:59 Intake Total 1867 Output Total 550 600 550 Balance -550 -600 1317 Weight 60.3 kg 60.3 kg General appearance: PRESENT: no acute distress, cooperative, well-developed, well-nourished Head exam: PRESENT: atraumatic, normocephalic Eye exam: PRESENT: conjunctiva pink, EOMI, PERRLA. ABSENT: scleral icterus Ear exam: PRESENT: normal external ear exam Mouth exam: PRESENT: moist, tongue midline Respiratory exam: PRESENT: clear to auscultation miguelito, symmetrical, unlabored. ABSENT: rales, rhonchi, wheezes Cardiovascular exam: PRESENT: RRR, +S1, +S2. ABSENT: diastolic murmur, rubs, systolic murmur Pulses: PRESENT: normal dorsalis pedis pul Vascular exam: PRESENT: normal capillary refill GI/Abdominal exam: PRESENT: normal bowel sounds, soft. ABSENT: distended, guarding, mass, organolmegaly, rebound, tenderness Rectal exam: PRESENT: deferred Extremities exam: ABSENT: calf tenderness, clubbing, full ROM - LUE to sling; limited LLE ROM r/t pain, pedal edema Neurological exam: PRESENT: alert, awake, oriented to person, oriented to place, oriented to time, oriented to situation, CN II-XII grossly intact. ABSENT: motor sensory deficit Psychiatric exam: PRESENT: appropriate affect, normal mood. ABSENT: homicidal ideation, suicidal ideation Skin exam: PRESENT: dry, warm. ABSENT: cyanosis, intact - Lt hip post op dressing not visualized, rash Results Laboratory Results: 09/11/19 04:00 09/11/19 04:00 09/11/19 09/11/19 04:00 04:00 WBC 10.0 RBC 3.56 L Hgb 11.9 L Hct 34.9 L MCV 98 H MCH 33.4 MCHC 34.1 RDW 13.5 Plt Count 239 Sodium 138.0 Potassium 3.9 Chloride 103 Carbon Dioxide 28 Anion Gap 7 BUN 19 Creatinine 0.77 Est GFR ( Amer) > 60 Glucose 107 Calcium 8.9 Total Bilirubin 0.6 AST 26 Alkaline Phosphatase 71 Total Protein 5.7 L Albumin 3.4 L 09/09/19 09/09/19 23:56 23:56 Creatine Kinase 220 H Troponin I < 0.012 Impressions: Chest X-Ray 09/09/19 23:13 IMPRESSION: No acute cardiopulmonary process copyright 2011 [employer]- All Rights Reserved Shoulder X-Ray 09/10/19 01:20 IMPRESSION: 1. Interval reduction of the left shoulder dislocation. 2. Mildly displaced fracture through the greater tuberosity. 3. Mild diffuse bone demineralization. Fluoroscopy 09/11/19 00:00 IMPRESSION: IMAGE(S) OBTAINED DURING PROCEDURE. Hip X-Ray 09/11/19 00:00 IMPRESSION: IMAGE(S) OBTAINED DURING PROCEDURE. Pelvis X-Ray 09/11/19 00:00 IMPRESSION: SATISFACTORY POSTOPERATIVE LEFT HIP. Assessment and Plan - Diagnosis (1) Hip fracture, left Qualifiers: Encounter type: initial encounter Fracture type: closed Qualified Code(s): S72.002A - Fracture of unspecified part of neck of left femur, initial encounter for closed fracture Is this a current diagnosis for this admission?: Yes Plan: Now s/p left hip arthroplasty by Dr. Howard. Recommends full dose aspirin daily x6 weeks for DVT prophylaxis. Analgesics as needed. PT/OT consulted. Discharge planning consulted. (2) HLD (hyperlipidemia) Is this a current diagnosis for this admission?: Yes Plan: Patient is placed on a regular diet. Continue home dose statin therapy. (3) Tobacco dependence Is this a current diagnosis for this admission?: Yes Plan: Smoking cessation encouraged. Nicotine replacement therapies provided. Aggressive pulmonary toilet during the intraoperative period; IS and flutter valve to bedside. As needed nebulizer treatments available. (4) Shoulder fracture, left Qualifiers: Encounter type: initial encounter Fracture type: closed Qualified Code(s): S42.92XA - Fracture of left shoulder girdle, part unspecified, initial encounter for closed fracture Is this a current diagnosis for this admission?: Yes Plan: Primary management per orthopedic team. Sling. Analgesics as needed. (5) Dislocated shoulder Qualifiers: Laterality: left Is this a current diagnosis for this admission?: Yes Plan: Status post reduction while in the emergency department. Primary management per orthopedic team. Analgesics as needed. (6) Acute alcohol intoxication Qualifiers: Complication of substance-induced condition: uncomplicated Qualified Code(s): F10.920 - Alcohol use, unspecified with intoxication, uncomplicated Is this a current diagnosis for this admission?: Yes Plan: At time of admission, serum alcohol level of 111. Patient admits to occasional/social alcohol intake. She denies alcohol dependence or history of withdrawal. We will provide daily multivitamin, folic acid, and thiamine supplementation. Monitor for evidence of alcohol dependence/withdrawal. - Time Time Spent with patient: Less than 15 minutes Anticipated discharge: SNF Within: when bed available
[2019-09-11] MEDS: TRAMADOL HCL 50 MG TABLET PO PRN (20:22)
[2019-09-11] MEDS: ATORVASTATIN CALCIUM 10 MG TABLET PO SCH (21:47)
[2019-09-12] MEDS: CEFAZOLIN SODIUM 2 GM in DEXTROSE 5%-WATER 100 ML IV SCH (00:20)
[2019-09-12] MEDS: MORPHINE SULFATE 10 MG/ML INJ IV PRN ×4 (00:20→18:01)
[2019-09-12] MEDS: ACETAMINOPHEN 325 MG TABLET PO SCH ×4 (02:08→17:22)
[2019-09-12] MEDS: PANTOPRAZOLE SODIUM 20 MG TABLET.DR PO SCH (05:15)
[2019-09-12 07:13] LABS: HEMATOCRIT 32.7 % (36.0-47.0); HEMOGLOBIN 11.3 g/dL (12.0-15.5); MEAN CORPUSCULAR HEMOGLOBIN 33.8 pg (27.0-33.4); MEAN CORPUSCULAR HGB CONC 34.6 g/dL (32.0-36.0); MEAN CORPUSCULAR VOLUME 98 fl (80-97); PLATELET COUNT 200 10^3/uL (150-450); RED BLOOD COUNT 3.35 10^6/uL (3.72-5.28); RED CELL DISTRIBUTION WIDTH 13.3 % (11.5-14.0); WHITE BLOOD COUNT 8.5 10^3/uL (4.0-10.5)
--- NOTE | 2019-09-12 08:23 | PDOC PROGRESS REPORT ---
Subjective Progress Note for:: 09/12/19 Subjective:: Patient is feeling well this morning. She does have some ache but otherwise is well controlled on current pain management. Reason For Visit: LEFT FEMORAL NECK FRACTURE Physical Exam Vital Signs: Temp Pulse Resp BP Pulse Ox 98.5 F 99 16 126/65 H 96 09/12/19 00:23 09/12/19 00:23 09/12/19 00:23 09/12/19 00:23 09/12/19 00:23 Intake & Output 09/11/19 09/12/19 09/13/19 06:59 06:59 06:59 Intake Total 2547 Output Total 600 1025 Balance -600 1522 Weight 60.3 kg 63.5 kg Physical Exam: Left lower extremity -Pulses 2+ distally -Compartments soft -Wound clean dry and intact no drainage in appropriate swelling for postop day -Sensation grossly intact to L3-4-5 S1 -Motor grossly intact to EHL TA gastroc and quad - Able to perform quad extension and elevate heel off of bed. LUE Left upper extremity sensation grossly intact to radial median and ulnar nerve. Left upper extremity motor function grossly intact to radian median ulnar nerve AIN and PIN Pulses 2+, capillary refill less than 2 seconds No deformity noted full range of motion of the elbow wrist and fingers without pain Compartments soft, no tenderness to palpation skin intact some tenderness to palpation about the shoulder. Overall she is tolerating her shoulder injury very well with very little pain. Results Laboratory Results: 09/12/19 06:40 09/11/19 04:00 09/12/19 06:40 WBC 8.5 RBC 3.35 L Hgb 11.3 L Hct 32.7 L MCV 98 H MCH 33.8 H MCHC 34.6 RDW 13.3 Plt Count 200 09/09/19 09/09/19 23:56 23:56 Creatine Kinase 220 H Troponin I < 0.012 Impressions: Chest X-Ray 09/09/19 23:13 IMPRESSION: No acute cardiopulmonary process copyright 2011 [employer]- All Rights Reserved Shoulder X-Ray 09/10/19 01:20 IMPRESSION: 1. Interval reduction of the left shoulder dislocation. 2. Mildly displaced fracture through the greater tuberosity. 3. Mild diffuse bone demineralization. Fluoroscopy 09/11/19 00:00 IMPRESSION: IMAGE(S) OBTAINED DURING PROCEDURE. Hip X-Ray 09/11/19 00:00 IMPRESSION: IMAGE(S) OBTAINED DURING PROCEDURE. Pelvis X-Ray 09/11/19 00:00 IMPRESSION: SATISFACTORY POSTOPERATIVE LEFT HIP. Assessment & Plan - Diagnosis (1) Hip fracture, left Qualifiers: Encounter type: initial encounter Fracture type: closed Qualified Code(s): S72.002A - Fracture of unspecified part of neck of left femur, initial encounter for closed fracture Is this a current diagnosis for this admission?: Yes Plan: - 2 doses of Ancef postoperatively q 8 hours to complete 24 hours perioperatively -Weightbearing as tolerated, no precautions, encourage out of bed JOE for ADL training - PT/OT - Keep knee extended in bed, rolled towel under the ankle to obtain full extension -aspirin 325 daily for DVT prophylaxis for 6 weeks -multimodal pain management to avoid excessive narcotics, including gabapentin, tramadol, Toradol, acetaminophen. -Dressing should not be removed for 7 to 10 days until seen in the office -May shower with the dressing intact, if it starts to come off she should not get the incision wet. -I would like to follow the patient my office within the next 7 to [address] at [address] [place] [address]. in [place] office #: [phone] -As per her left shoulder she should not be performing active abduction. Limit weightbearing as much as possible with the understanding that she may need to use her left arm to assist somewhat during rehabbing her left hip (2) Shoulder fracture, left Qualifiers: Encounter type: initial encounter Fracture type: closed Qualified Code(s): S42.92XA - Fracture of left shoulder girdle, part unspecified, initial encounter for closed fracture Is this a current diagnosis for this admission?: Yes - Time Time Spent with patient: Less than 15 minutes
[2019-09-12] MEDS: DOCUSATE SODIUM 100 MG CAPSULE PO SCH (09:47)
[2019-09-12] MEDS: THIAMINE HCL 100 MG TABLET PO SCH (09:47)
[2019-09-12] MEDS: MULTIVITAMIN TABLET PO SCH (09:47)
[2019-09-12] MEDS: FOLIC ACID 1 MG TABLET PO SCH (09:47)
[2019-09-12] MEDS: ASPIRIN 325 MG TABLET PO SCH (09:48)
[2019-09-12] MEDS: OXYCODONE HCL IR 5 MG TABLET PO PRN ×2 (13:01→19:56)
--- NOTE | 2019-09-12 13:27 | PDOC PROGRESS REPORT ---
Subjective Progress Note for:: 09/12/19 Subjective:: Patient is a 74 year old female with a past medical history of [place] and PNA who was admitted 09/09/19 for left hip fracture and underwent hip arthroplasty by Dr. Howard today. Patient was seen on morning rounds. She was lying in bed, comfortably, on room air. She is hopeful to discharge directly to home; does not want to go to rehab. I recommended that she work with physical therapy again today before making her decision and to discuss this further with orthopedics and discharge planning. Otherwise, she had no specific questions or concerns. Denies fever, chills, chest pain, dyspnea, orthopnea, cough, abdominal pain, nausea and vomiting. Pain is well controlled. No concerns per nursing. Reason For Visit: LEFT FEMORAL NECK FRACTURE Physical Exam Vital Signs: Temp Pulse Resp BP Pulse Ox 98.8 F 84 18 130/64 H 95 09/12/19 12:00 09/12/19 12:00 09/12/19 12:00 09/12/19 12:09/12/19 12:00 Intake & Output 09/11/19 09/12/19 09/13/19 06:59 06:59 06:59 Intake Total 2547 Output Total 600 1025 Balance -600 1522 Weight 60.3 kg 63.5 kg General appearance: PRESENT: no acute distress, cooperative, well-developed, well-nourished Head exam: PRESENT: atraumatic, normocephalic Eye exam: PRESENT: conjunctiva pink, EOMI, PERRLA. ABSENT: scleral icterus Ear exam: PRESENT: normal external ear exam Mouth exam: PRESENT: moist, tongue midline Respiratory exam: PRESENT: clear to auscultation miguelito, symmetrical, unlabored. ABSENT: rales, rhonchi, wheezes Cardiovascular exam: PRESENT: RRR, +S1, +S2. ABSENT: diastolic murmur, rubs, systolic murmur Pulses: PRESENT: normal dorsalis pedis pul Vascular exam: PRESENT: normal capillary refill GI/Abdominal exam: PRESENT: normal bowel sounds, soft. ABSENT: distended, guarding, mass, organolmegaly, rebound, tenderness Rectal exam: PRESENT: deferred Extremities exam: PRESENT: full ROM, tenderness - Left hip, left upper extremity. ABSENT: calf tenderness, clubbing, pedal edema Musculoskeletal exam: PRESENT: ambulatory - With hemiwalker Neurological exam: PRESENT: alert, awake, oriented to person, oriented to place, oriented to time, oriented to situation, CN II-XII grossly intact. ABSENT: motor sensory deficit Psychiatric exam: PRESENT: appropriate affect, normal mood. ABSENT: homicidal ideation, suicidal ideation Skin exam: PRESENT: dry, warm. ABSENT: cyanosis, rash Results Laboratory Results: 09/12/19 06:40 09/11/19 04:00 09/12/19 06:40 WBC 8.5 RBC 3.35 L Hgb 11.3 L Hct 32.7 L MCV 98 H MCH 33.8 H MCHC 34.6 RDW 13.3 Plt Count 200 09/09/19 09/09/19 23:56 23:56 Creatine Kinase 220 H Troponin I < 0.012 Impressions: Chest X-Ray 09/09/19 23:13 IMPRESSION: No acute cardiopulmonary process copyright 2010 [employer]- All Rights Reserved Shoulder X-Ray 09/10/19 01:20 IMPRESSION: 1. Interval reduction of the left shoulder dislocation. 2. Mildly displaced fracture through the greater tuberosity. 3. Mild diffuse bone demineralization. Fluoroscopy 09/11/19 00:00 IMPRESSION: IMAGE(S) OBTAINED DURING PROCEDURE. Hip X-Ray 09/11/19 00:00 IMPRESSION: IMAGE(S) OBTAINED DURING PROCEDURE. Pelvis X-Ray 09/11/19 00:00 IMPRESSION: SATISFACTORY POSTOPERATIVE LEFT HIP. Assessment and Plan - Diagnosis (1) Hip fracture, left Qualifiers: Encounter type: initial encounter Fracture type: closed Qualified Code(s): S72.002A - Fracture of unspecified part of neck of left femur, initial encounter for closed fracture Is this a current diagnosis for this admission?: Yes Plan: Now s/p left hip arthroplasty by Dr. Howard. Recommends full dose aspirin daily x6 weeks for DVT prophylaxis. Analgesics as needed. PT/OT consulted. Discharge planning consulted. (2) HLD (hyperlipidemia) Is this a current diagnosis for this admission?: Yes Plan: Patient is placed on a regular diet. Continue home dose statin therapy. (3) Tobacco dependence Is this a current diagnosis for this admission?: Yes Plan: Smoking cessation encouraged. Nicotine replacement therapies provided. Aggressive pulmonary toilet during the intraoperative period; IS and flutter gold ve to bedside. As needed nebulizer treatments available. (4) Shoulder fracture, left Qualifiers: Encounter type: initial encounter Fracture type: closed Qualified Code(s): S42.92XA - Fracture of left shoulder girdle, part unspecified, initial encounter for closed fracture Is this a current diagnosis for this admission?: Yes Plan: Primary management per orthopedic team. Sling. Analgesics as needed. (5) Dislocated shoulder Qualifiers: Laterality: left Is this a current diagnosis for this admission?: Yes Plan: Status post reduction while in the emergency department. Primary management per orthopedic team. Analgesics as needed. (6) Acute alcohol intoxication Qualifiers: Complication of substance-induced condition: uncomplicated Qualified Code(s): F10.920 - Alcohol use, unspecified with intoxication, uncomplicated Is this a current diagnosis for this admission?: Yes Plan: At time of admission, serum alcohol level of 111. Patient admits to occasional/social alcohol intake. Discussed further with patient today; she denies regular alcohol intake. She reports that she had had "a few cocktails and some bad luck" resulting in her admission. She denies alcohol dependence or any history of withdrawal. Her v ital signs are stable and she is not showing objective signs of early alcohol withdrawal; I do not believe that she is at risk. We will provide daily multivitamin, folic acid, and thiamine supplementation. - Plan Summary Summary: The patient is medically stable for discharge from the hospitalist perspective. We will sign off at this time. Please reconsult if we can be of any further assistance. - Time Time Spent with patient: 15-24 minutes Medications reviewed and adjusted accordingly: Yes Anticipated discharge: Home with Homehealth - vs SNF for rehab Within: when bed available
[2019-09-12] MEDS: TRAMADOL HCL 50 MG TABLET PO PRN (21:18)
[2019-09-12] MEDS: ATORVASTATIN CALCIUM 10 MG TABLET PO SCH (21:18)
[2019-09-13] MEDS: ACETAMINOPHEN 325 MG TABLET PO SCH ×3 (00:17→11:50)
[2019-09-13] MEDS: MORPHINE SULFATE 10 MG/ML INJ IV PRN ×2 (04:06→14:08)
[2019-09-13] MEDS: PANTOPRAZOLE SODIUM 20 MG TABLET.DR PO SCH (05:55)
[2019-09-13] MEDS: ONDANSETRON 4 MG TAB.RAPDIS PO PRN (08:48)
[2019-09-13] MEDS: ASPIRIN 325 MG TABLET PO SCH (09:28)
[2019-09-13] MEDS: DOCUSATE SODIUM 100 MG CAPSULE PO SCH (09:32)
[2019-09-13] MEDS: FOLIC ACID 1 MG TABLET PO SCH (09:32)
[2019-09-13] MEDS: MULTIVITAMIN TABLET PO SCH (09:32)
[2019-09-13] MEDS: THIAMINE HCL 100 MG TABLET PO SCH (09:32)
--- NOTE | 2019-09-13 09:37 | PDOC PROGRESS REPORT ---
Subjective Progress Note for:: 09/13/19 Subjective:: Patient is doing well this morning. No new complaints. She is out of bed with PT but having some difficulty. Reason For Visit: LEFT FEMORAL NECK FRACTURE Physical Exam Vital Signs: Temp Pulse Resp BP Pulse Ox 98.7 F 62 16 114/53 L 92 09/13/19 07:49 09/13/19 09:20 09/13/19 09:20 09/13/19 07:49 09/13/19 09:20 Intake & Output 09/12/19 09/13/19 09/14/19 06:59 06:59 06:59 Intake Total 2547 1280 Output Total 1025 Balance 1522 1280 Weight 63.5 kg 65.2 kg Physical Exam: Left lower extremity -Pulses 2+ distally -Compartments soft -Wound clean dry and intact no drainage in appropriate swelling for postop day -Sensation grossly intact to L3-4-5 S1 -Motor grossly intact to EHL TA gastroc and quad - Able to perform quad extension and elevate heel off of bed. LUE Left upper extremity sensation grossly intact to radial median and ulnar nerve. Left upper extremity motor function grossly intact to radian median ulnar nerve AIN and PIN Pulses 2+, capillary refill less than 2 seconds No deformity noted full range of motion of the elbow wrist and fingers without pain Compartments soft, no tenderness to palpation skin intact some tenderness to palpation about the shoulder. Overall she is tolerating her shoulder injury very well with very little pain. Results Laboratory Results: 09/12/19 06:40 09/11/19 04:00 09/09/19 09/09/19 23:56 23:56 Creatine Kinase 220 H Troponin I < 0.012 Impressions: Chest X-Ray 09/09/19 23:13 IMPRESSION: No acute cardiopulmonary process copyright 2010 [employer]- All Rights Reserved Shoulder X-Ray 09/10/19 01:20 IMPRESSION: 1. Interval reduction of the left shoulder dislocation. 2. Mildly displaced fracture through the greater tuberosity. 3. Mild diffuse bone demineralization. Fluoroscopy 09/11/19 00:00 IMPRESSION: IMAGE(S) OBTAINED DURING PROCEDURE. Hip X-Ray 09/11/19 00:00 IMPRESSION: IMAGE(S) OBTAINED DURING PROCEDURE. Pelvis X-Ray 09/11/19 00:00 IMPRESSION: SATISFACTORY POSTOPERATIVE LEFT HIP. Assessment & Plan - Diagnosis (1) Hip fracture, left Qualifiers: Encounter type: initial encounter Fracture type: closed Qualified Code(s): S72.002A - Fracture of unspecified part of neck of left femur, initial encounter for closed fracture Is this a current diagnosis for this admission?: Yes Plan: - weightbearing as tolerated left lower extremity. -She may leave dressing intact until seen in the office in 7 to 10 days from the date of surgery -Aspirin for DVT prophylaxis -Pain medication prescriptions in the chart -Encourage out of bed and weightbearing as tolerated with physical therapy -Discharge to rehab per physical therapy recommendations. (2) Shoulder fracture, left Qualifiers: Encounter type: initial encounter Fracture type: closed Qualified Code(s): S42.92XA - Fracture of left shoulder girdle, part unspecified, initial encounter for closed fracture Is this a current diagnosis for this admission?: Yes Plan: -Continue minimal weightbearing left upper extremity with avoidance of active abduction. -May participate with a platform walker to tolerance recommend as little weightbearing on the left upper extremity as possible -Sling for comfort -We will get follow-up x-rays in the office on her next visit. - Time Time Spent with patient: Less than 15 minutes
--- NOTE | 2019-09-13 12:50 | PDOC DISCHARGE SUMMARY ---
Impression - Admit/DC Date/PCP Admission Date/Primary Care Provider: 09/10/19 00:54 AROLDO GAN NP Discharge Date: 09/13/19 - Discharge Diagnosis (1) Hip fracture, left Is this a current diagnosis for this admission?: Yes (2) Shoulder fracture, left Is this a current diagnosis for this admission?: Yes - Assessment Summary: Mrs. Ocasio is a very pleasant 74-year-old female who presented who presented to the emergency department after a fall at home suffering from a left proximal humerus fractrue dislocation and left femoral neck fracture. The shoulder was reduced in the emergency department. After a thorough work-up including x-rays and pre-operative hospitalist consult, as well as discussing risks and benefits and other treatment options, the patient elected to proceed with a left hip hemiarthroplasty. They were brought to the operating room on 09/11/2020 and underwent a left hip hemiarthroplasty and tolerated procedure very well with out complication. They remained in the hospital for postoperative medical management, monitoring, and pain control and physical therapy. On postoperative day #1 they were ambulating well with physical therapy, but still having difficulty due to her associated LUE fracture. On POD#2 they were continuing to improve and re-evaluated by PT, to the degree that they approved them for discharge to rehab. They were discharged to rehab on 09/13/2019. They had no acute events or complications over the course of their stay. All detailed instructions and prescriptions were provided to the patient prior to admission on the year prior office visit. The patient is medically stable for discharge from the hospitalist perspective. - Additional Information Resuscitation Status: Full Code Discharge Diet: As Tolerated Discharge Activity: Activity As Tolerated Referrals: MARY MEDINA JR, DO [ACTIVE PROVISIONAL STAFF] - Prescriptions: Aspirin [Aspirin 325 mg Tablet] 325 mg PO DAILY #42 tablet Oxycodone HCl [Oxy-Ir 5 mg Tablet] 5 mg PO Q4HP PRN #30 tablet PRN Reason: Tramadol HCl [Ultram 50 mg Tablet] 50 mg PO Q6HP PRN #30 tablet PRN Reason: Home Medications: Atorvastatin Calcium [Lipitor 10 mg Tablet] 10 mg PO ASDIR 02/17/18 Ibuprofen 200 mg PO DAILYP PRN 09/10/19 Lisinopril [Prinivil 2.5 mg Tablet] 2.5 mg PO DAILYP PRN 09/10/19 Acetaminophen [Tylenol 325 mg Tablet] 650 mg PO Q6 tablet 09/12/19 Aspirin [Aspirin 325 mg Tablet] 325 mg PO DAILY #42 tablet 09/12/19 Oxycodone HCl [Oxy-Ir 5 mg Tablet] 5 mg PO Q4HP PRN #30 tablet 09/12/19 Tramadol HCl [Ultram 50 mg Tablet] 50 mg PO Q6HP PRN #30 tablet 09/12/19 History of Present Illiness History of Present Illness: Mrs. Ocasio is a very pleasant 74-year-old female who presented who presented to the emergency department after a fall at home suffering from a left proximal humerus fractrue dislocation and left femoral neck fracture. The shoulder was reduced in the emergency department. After a thorough work-up including x-rays and pre-operative hospitalist consult, as well as discussing risks and benefits and other treatment options, the patient elected to proceed with a left hip hemiarthroplasty. Hospital Course Hospital Course: They were brought to the operating room on 09/11/2020 and underwent a left hip hemiarthroplasty and tolerated procedure very well with out complication. They remained in the hospital for postoperative medical management, monitoring, and pain control and physical therapy. On postoperative day #1 they were ambulating well with physical therapy, but still having difficulty due to her associated LUE fracture. On POD#2 they were continuing to improve and re-evaluated by PT, to the degree that they approved them for discharge to rehab. They were discharged to rehab on 09/13/2019. They had no acute events or complications over the course of their stay. All detailed instructions and prescriptions were p rovided to the patient prior to admission on the year prior office visit. Physical Exam Vital Signs: Temp Pulse Resp BP Pulse Ox 98.7 F 62 16 114/53 L 92 09/13/19 07:49 09/13/19 09:20 09/13/19 09:20 09/13/19 07:49 09/13/19 09:20 Intake & Output 09/12/19 09/13/19 09/14/19 06:59 06:59 06:59 Intake Total 2547 1280 Output Total 1025 Balance 1522 1280 Weight 63.5 kg 65.2 kg Results Laboratory Results: WBC 8.5 10^3/uL (4.0-10.5) 09/12/19 06:40 RBC 3.35 10^6/uL (3.72-5.28) L 09/12/19 06:40 Hgb 11.3 g/dL (12.0-15.5) L 09/12/19 06:40 Hct 32.7 % (36.0-47.0) L 09/12/19 06:40 MCV 98 fl (80-97) H 09/12/19 06:40 MCH 33.8 pg (27.0-33.4) H 09/12/19 06:40 MCHC 34.6 g/dL (32.0-36.0) 09/12/19 06:40 RDW 13.3 % (11.5-14.0) 09/12/19 06:40 Plt Count 200 10^3/uL (150-450) 09/12/19 06:40 Lymph % (Auto) 14.2 % (13-45) 09/09/19 23:56 [place] % (Auto) 4.5 % (3-13) 09/09/19 23:56 Eos % (Auto) 0.2 % (0-6) 09/09/19 23:56 Baso % (Auto) 0.5 % (0-2) 09/09/19 23:56 Absolute Neuts (auto) 8.9 10^3/uL (1.7-8.2) H 09/09/19 23:56 Absolute Lymphs (auto) 1.6 10^3/uL (0.5-4.7) 09/09/19 23:56 Absolute Monos (auto) 0.5 10^3/uL (0.1-1.4) 09/09/19 23:56 Absolute Eos (auto) 0.0 10^3/uL (0.0-0.6) 09/09/19 23:56 Absolute Basos (auto) 0.1 10^3/uL (0.0-0.2) 09/09/19 23:56 Seg Neutrophils % 80.6 % (42-78) H 09/09/19 23:56 PT 12.9 SEC (11.4-15.4) 09/09/19 23:56 INR 0.97 09/09/19 23:56 APTT 31.4 SEC (23.5-35.8) 09/09/19 23:56 Sodium 138.0 mmol/L (137-145) 09/11/19 04:00 Potassium 3.9 mmol/L (3.6-5.0) 09/11/19 04:00 Chloride 103 mmol/L (98-107) 09/11/19 04:00 Carbon Dioxide 28 mmol/L (22-30) 09/11/19 04:00 Anion Gap 7 (5-19) 09/11/19 04:00 BUN 19 mg/dL (7-20) 09/11/19 04:00 Creatinine 0.77 mg/dL (0.52-1.25) 09/11/19 04:00 Est GFR ( Amer) > 60 (>60) 09/11/19 04:00 Est GFR (MDRD) Non-Af > 60 (>60) 09/11/19 04:00 Glucose 107 mg/dL (75-110) 09/11/19 04:00 Calcium 8.9 mg/dL (8.4-10.2) 09/11/19 04:00 Total Bilirubin 0.6 mg/dL (0.2-1.3) 09/11/19 04:00 Direct Bilirubin 0.1 mg/dL (0.0-0.4) 09/11/19 04:00 Neonat Total Bilirubin Not Reportable 09/11/19 04:00 Neonat Direct Bilirubin Not Reportable 09/11/19 04:00 Neonat Indirect Bili Not Reportable 09/11/19 04:00 AST 26 U/L (14-36) 09/11/19 04:00 ALT 12 U/L (<35) 09/11/19 04:00 Alkaline Phosphatase 71 U/L (38-126) 09/11/19 04:00 Creatine Kinase 220 U/L (30-135) H 09/09/19 23:56 Troponin I < 0.012 ng/mL 09/09/19 23:56 Total Protein 5.7 g/dL (6.3-8.2) L 09/11/19 04:00 Albumin 3.4 g/dL (3.5-5.0) L 09/11/19 04:00 Urine Color STRAW 09/10/19 00:12 Urine Appearance CLEAR 09/10/19 00:12 Urine pH 5.0 (5.0-9.0) 09/10/19 00:12 Ur Specific [place] 1.006 09/10/19 00:12 Urine Protein NEGATIVE mg/dL (NEGATIVE) 09/10/19 00:12 Urine Glucose (UA) 50 mg/dL (NEGATIVE) H 09/10/19 00:12 Urine Ketones NEGATIVE mg/dL (NEGATIVE) 09/10/19 00:12 Urine Blood SMALL (NEGATIVE) H 09/10/19 00:12 Urine Nitrite NEGATIVE (NEGATIVE) 09/10/19 00:12 Urine Bilirubin NEGATIVE (NEGATIVE) 09/10/19 00:12 Urine Urobilinogen NEGATIVE mg/dL (<2.0) 09/10/19 00:12 Ur Leukocyte Esterase MODERATE (NEGATIVE) H 09/10/19 00:12 Urine WBC (Auto) 6 /HPF 09/10/19 00:12 Urine RBC (Auto) 7 /HPF 09/10/19 00:12 Urine Bacteria (Auto) TRACE /HPF 09/10/19 00:12 Urine Mucus (Auto) RARE /LPF 09/10/19 00:12 Urine Ascorbic Acid NEGATIVE (NEGATIVE) 09/10/19 00:12 Urine Opiates Screen NEGATIVE 09/10/19 00:12 Urine Methadone Screen NEGATIVE 09/10/19 00:12 Ur Barbiturates Screen NEGATIVE 09/10/19 00:12 Ur Phencyclidine Scrn NEGATIVE 09/10/19 00:12 Ur Amphetamines Screen NEGATIVE 09/10/19 00:12 U Benzodiazepines Scrn NEGATIVE 09/10/19 00:12 Urine Cocaine Screen NEGATIVE 09/10/19 00:12 U Marijuana (THC) Screen NEGATIVE 09/10/19 00:12 Serum Alcohol 111 mg/dL (NONE DETECTED) 09/09/19 23:56 Blood Type O POSITIVE 09/09/19 23:56 Antibody Screen NEGATIVE 09/09/19 23:56 09/09/19 23:56 Troponin I < 0.012 Impressions: Hip X-Ray 09/09/19 21:23 IMPRESSION: Left subcapital hip fracture as above copyright 2010 [employer]- All Rights Reserved Shoulder X-Ray 09/09/19 21:23 IMPRESSION: Inferior dislocation of the humerus with displaced fracture of the greater tuberosity copyright 2010 [employer]- All Rights Reserved Chest X-Ray 09/09/19 23:13 IMPRESSION: No acute cardiopulmonary process copyright 2010 [employer]- All Rights Reserved Shoulder X-Ray 09/10/19 01:20 IMPRESSION: 1. Interval reduction of the left shoulder dislocation. 2. Mildly displaced fracture through the greater tuberosity. 3. Mild diffuse bone demineralization. Fluoroscopy 09/11/19 00:00 IMPRESSION: IMAGE(S) OBTAINED DURING PROCEDURE. Hip X-Ray 09/11/19 00:00 IMPRESSION: IMAGE(S) OBTAINED DURING PROCEDURE. Pelvis X-Ray 09/11/19 00:00 IMPRESSION: SATISFACTORY POSTOPERATIVE LEFT HIP. Stroke Is this a Stroke Patient?: No Acute Heart Failure - Is this a Heart Failure Patient?: No
[2019-09-13 15:31] VITALS: BP 125/61
--- NOTE | 2019-09-17 09:03 | PDOC H&P ---
History of Present Illness Admission Date/PCP: 09/10/19 00:54 AROLDO GAN NP History of Present Illness: Provider Note Provider Note: History and Physical Patient Name: DONALD BUSTAMANTE Date of : 1945 Patient Status: Inpatient Attending Provider: MARY MEDINA JR Date: 09/10/19 12:30 Initialization Date: 09/10/19 12:30 Orthopedic History and Physical Date: 09/10/19 Attending physician:: MARY MEDINA JR Provider Consulted: MARY MEDINA JR Consult reason:: History and Physical. History of Present Illness Admission Date/PCP: 09/10/19 00:54 AROLDO GAN NP Patient complains of: Left shoulder pain, left hip pain History of Present Illness: DONALD BUSTAMANTE is a 74 year old female who was brought to the emergency department after a fall at home. She is unsure exactly how she fell but she tripped and landed on her left side, resulting in both severe left shoulder pain and 8 out of 10 left hip pain leading to the inability to ambulate. Pain is constant and worse with any motion. Pain medication improves the pain. She was brought to the hospital and x-rays were taken that demonstrate both a dislocated left shoulder as well as a left intertrochanteric hip fracture. The emergency department reduced her shoulder and subsequent films show a concentrically reduced shoulder. She denies prior loss of consciousness head injury or syncopal-like episode, she denies current altered sensorium. Past Medical History Cardiac Medical History: Reports: Myocardial Infarction - 2015 MINOR HEART ATTACK R/T STRESS PER PT Denies: Coronary Artery Disease, Hypertension Pulmonary Medical History: Reports: Pneumonia - YRS AGO Denies: Asthma, Bronchitis, Chronic Obstructive Pulmonary Disease (COPD) Neurological Medical History: Reports: None Denies: Seizures Endocrine Medical History: Reports: None Renal/ Medical History: Reports: None Malignancy Medical History: Reports: None GI Medical History: Reports: None Musculoskeltal Medical History: Denies: Arthritis Skin Medical History: Reports: None Psychiatric Medical History: Reports: None Traumatic Medical History: Reports: None Hematology: Denies: Anemia Infectious Medical History: Reports: None Social History Lives with: Alone Smoking Status: Current Every Day Smoker Cigarettes Packs Per Day: 1 Number of Years Smokin Frequency of Alcohol Use: Occasional Hx Recreational Drug Use: No - Advance Directive Resuscitation Status: Full Code Family History Family History: Reviewed & Not Pertinent Parental Family History Reviewed: No Children Family History Reviewed: NA Sibling(s) Family History Reviewed.: NA Medication/Allergy Home Medications: Atorvastatin Calcium [Lipitor 10 mg Tablet] 10 mg PO ASDIR 02/17/18 Ibuprofen 200 mg PO DAILYP PRN 09/10/19 Lisinopril [Prinivil 2.5 mg Tablet] 2.5 mg PO DAILYP PRN 09/10/19 Allergies/Adverse Reactions: erythromycin base Allergy (Verified 08/26/18 09:11) STOMACH PAIN Sulfa (Sulfonamide Antibiotics) Allergy (Verified 08/26/18 09:11) Review of Systems Review of Systems: Constitutional: ABSENT: anorexia, chills, night sweats Cardiovascular: ABSENT: chest pain Respiratory: ABSENT: dyspnea Gastrointestinal: ABSENT: vomiting Genitourinary: ABSENT: dysuria Integumentary: ABSENT: rash Neurological: ABSENT: confusion, memory loss, numbness Psychiatric: ABSENT: hallucinations Hematologic/Lymphatic: ABSENT: easy bleeding Physical Exam Vital Signs: Temp Pulse Resp BP Pulse Ox 97.2 F 83 19 159/74 H 96 09/10/19 11:03 09/10/19 11:03 09/10/19 11:03 09/10/19 11:03 09/10/19 11:03 Intake & Output 09/09/19 09/10/19 09/11/19 06:59 06:59 06:59 Output Total 550 Balance -550 Weight 60.3 kg Physical Exam: General appearance: PRESENT: no acute distress, cooperative, well-nourished Head exam: PRESENT: atraumatic, normocephalic Eye exam: PRESENT: EOMI Ear exam: PRESENT: normal external ear exam Mouth exam: PRESENT: neck supple Neck exam: ABSENT: tracheal deviation Respiratory exam: PRESENT: symmetrical, unlabored. ABSENT: accessory muscle use, wheezes Pulses: PRESENT: normal radial pulses, normal dorsalis pedis pulse Vascular exam: PRESENT: normal capillary refill GI/Abdominal exam: ABSENT: distended, firm Extremities exam: PRESENT: full ROM of bilateral shoulders, elbows wrists, knees, hips and ankles without pain Musculoskeletal exam: PRESENT: full ROM, normal inspection of all 4 extremities aside from that noted below. Neurological exam: PRESENT: alert, awake, oriented to person, oriented to place, oriented to time Psychiatric exam: PRESENT: appropriate affect. ABSENT: agitated Focused psych exam: ABSENT: catatonic Skin exam: PRESENT: intact. ABSENT: dry All as above aside from that noted in the HPI and the following: LUE Left upper extremity sensation grossly intact to radial median and ulnar nerve. Left upper extremity motor function grossly intact to radian median ulnar nerve AIN and PIN Pulses 2+, capillary refill less than 2 seconds No deformity noted full range of motion of the elbow wrist and fingers without pain Compartments soft, no tenderness to palpation skin intact Left shoulder was in sling at time of exam, some tenderness to palpation about the shoulder. Left lower extremity -Pulses 2+ distally -Compartments soft -Sensation grossly intact to L3-4-5 S1 -Motor grossly intact to EHL TA gastroc and quad -Pain with any range of motion of the left hip Results Laboratory Results: 09/09/19 23:56 09/09/19 23:56 09/09/19 09/09/19 09/09/19 23:56 23:56 23:56 WBC 11.1 H RBC 3.87 Hgb 12.9 Hct 38.4 MCV 99 H MCH 33.4 MCHC 33.7 RDW 13.9 Plt Count 274 Seg Neutrophils % 80.6 H Sodium 140.5 Potassium 4.1 Chloride 105 Carbon Dioxide 21 L Anion Gap 15 BUN 14 Creatinine 0.69 Est GFR ( Amer) > 60 Glucose 116 H Calcium 9.2 Total Bilirubin 0.2 AST 27 Alkaline Phosphatase 85 Total Protein 7.0 Albumin 4.2 Urine Color Urine Appearance Urine pH Ur Specific [place] Urine Protein Urine Glucose (UA) Urine Ketones Urine Blood Urine Nitrite Ur Leukocyte Esterase Urine WBC (Auto) Urine RBC (Auto) Blood Type O POSITIVE Antibody Screen NEGATIVE 09/10/19 00:12 WBC RBC Hgb Hct MCV MCH MCHC RDW Plt Count Seg Neutrophils % Sodium Potassium Chloride Carbon Dioxide Anion Gap BUN Creatinine Est GFR ( Amer) Glucose Calcium Total Bilirubin AST Alkaline Phosphatase Total Protein Albumin Urine Color STRAW Urine Appearance CLEAR Urine pH 5.0 Ur Specific [place] 1.006 Urine Protein NEGATIVE Urine Glucose (UA) 50 H Urine Ketones NEGATIVE Urine Blood SMALL H Urine Nitrite NEGATIVE Ur Leukocyte Esterase MODERATE H Urine WBC (Auto) 6 Urine RBC (Auto) 7 Blood Type Antibody Screen 09/09/19 09/09/19 23:56 23:56 Creatine Kinase 220 H Troponin I < 0.012 Impressions: Hip X-Ray 09/09/19 21:23 IMPRESSION: Left subcapital hip fracture as above copyright 2010 [employer]- All Rights Reserved Chest X-Ray 09/09/19 23:13 IMPRESSION: No acute cardiopulmonary process copyright 2010 [employer]- All Rights Reserved Shoulder X-Ray 09/10/19 01:20 IMPRESSION: 1. Interval reduction of the left shoulder dislocation. 2. Mildly displaced fracture through the greater tuberosity. 3. Mild diffuse bone demineralization. Assessment & Plan - Diagnosis (1) Hip fracture, left Plan: At this time we will plan for left hip hemiarthroplasty to be performed on 09/11/2019 after a medical evaluation and clearance. -The patient is to be made n.p.o. at midnight tonight -Bed rest -Hold all chemical DVT prophylaxis at midnight tonight -Ancef on-call for the OR -Multimodal pain management (2) Shoulder fracture, left Plan: She has a left shoulder fracture dislocation with a greater tuberosity fracture. This appeared to reduce well with her shoulder reduction and may heal in p osition. We will allow her to continue in the sling until further evaluation. I will get an axillary view to confirm reduction Past Medical History Cardiac Medical History: Reports: Myocardial Infarction - 2015 MINOR HEART ATTACK R/T STRESS PER PT Denies: Coronary Artery Disease, Hypertension Pulmonary Medical History: Reports: Pneumonia - YRS AGO Denies: Asthma, Bronchitis, Chronic Obstructive Pulmonary Disease (COPD) Neurological Medical History: Reports: None Denies: Seizures Endocrine Medical History: Reports: None Renal/ Medical History: Reports: None Malignancy Medical History: Reports: None GI Medical History: Reports: None Musculoskeltal Medical History: Denies: Arthritis Skin Medical History: Reports: None Psychiatric Medical History: Reports: None Traumatic Medical History: Reports: None Hematology: Denies: Anemia Infectious Medical History: Reports: None Past Surgical History Past Surgical History: Reports: None Social History Lives with: Alone Smoking Status: Current Every Day Smoker Cigarettes Packs Per Day: 0.5 Number of Years Smokin Frequency of Alcohol Use: Occasional Hx Recreational Drug Use: No Hx Prescription Drug Abuse: No - Advance Directive Resuscitation Status: Full Code Family History Family History: Reviewed & Not Pertinent Parental Family History Reviewed: No Children Family History Reviewed: NA Sibling(s) Family History Reviewed.: NA Medication/Allergy Home Medications: Atorvastatin Calcium [Lipitor 10 mg Tablet] 10 mg PO ASDIR 02/17/18 Ibuprofen 200 mg PO DAILYP PRN 09/10/19 Lisinopril [Prinivil 2.5 mg Tablet] 2.5 mg PO DAILYP PRN 09/10/19 Acetaminophen [Tylenol 325 mg Tablet] 650 mg PO Q6 tablet 09/12/19 Aspirin [Aspirin 325 mg Tablet] 325 mg PO DAILY #42 tablet 09/12/19 Oxycodone HCl [Oxy-Ir 5 mg Tablet] 5 mg PO Q4HP PRN #30 tablet 09/12/19 Tramadol HCl [Ultram 50 mg Tablet] 50 mg PO Q6HP PRN #30 tablet 09/12/19 Allergies/Adverse Reactions: erythromycin base Allergy (Verified 08/26/18 09:11) STOMACH PAIN Sulfa (Sulfonamide Antibiotics) Allergy (Verified 08/26/18 09:11) Physical Exam Vital Signs: Temp Pulse Resp BP Pulse Ox 98.3 F 86 18 125/61 94 09/13/19 15:28 09/13/19 15:28 09/13/19 15:28 09/13/19 15:28 09/13/19 15:28 Results Laboratory Results: 09/12/19 06:40 09/11/19 04:00 09/09/19 09/09/19 23:56 23:56 Creatine Kinase 220 H Troponin I < 0.012 Impressions: Chest X-Ray 09/09/19 23:13 IMPRESSION: No acute cardiopulmonary process copyright 2010 [employer]- All Rights Reserved Shoulder X-Ray 09/10/19 01:20 IMPRESSION: 1. Interval reduction of the left shoulder dislocation. 2. Mildly displaced fracture through the greater tuberosity. 3. Mild diffuse bone demineralization. Fluoroscopy 09/11/19 00:00 IMPRESSION: IMAGE(S) OBTAINED DURING PROCEDURE. Hip X-Ray 09/11/19 00:00 IMPRESSION: IMAGE(S) OBTAINED DURING PROCEDURE. Pelvis X-Ray 09/11/19 00:00 IMPRESSION: SATISFACTORY POSTOPERATIVE LEFT HIP. Assessment & Plan - Diagnosis (1) Hip fracture, left Qualifiers: Encounter type: initial encounter Fracture type: closed Qualified Code(s): S72.002A - Fracture of unspecified part of neck of left femur, initial encounter for closed fracture Is this a current diagnosis for this admission?: Yes (2) Shoulder fracture, left Qualifiers: Encounter type: initial encounter Fracture type: closed Qualified Code(s): S42.92XA - Fracture of left shoulder girdle, part unspecified, initial encounter for closed fracture Is this a current diagnosis for this admission?: Yes
== END 2019-09-13 15:28 | DRG 470 ==
LOC: ER 21:19 → EH 09-10 00:54 → 4N 09-10 02:40
PROVIDERS: ADMIT Orthopaedic Surgery; ATTEND Orthopaedic Surgery
PROC: 0PSDXZZ Reposition Left Humeral Head, External Approach (ICD-10-PCS; 2019-09-10)
PROC: 0SRS0JZ Replacement of Left Hip Joint, Femoral Surface with Synthetic Substitute, Open Approach (ICD-10-PCS; principal; 2019-09-11 09:00)
DX: S72.142A Displaced intertrochanteric fracture of left femur, initial encounter for closed fracture (principal); S42.252A Displaced fracture of greater tuberosity of left humerus, initial encounter for closed fracture; S72.012A Unspecified intracapsular fracture of left femur, initial encounter for closed fracture; F10.129 Alcohol abuse with intoxication, unspecified; Y90.5 Blood alcohol level of 100-119 mg/100 ml; F17.210 Nicotine dependence, cigarettes, uncomplicated; E78.5 Hyperlipidemia, unspecified; W18.30XA Fall on same level, unspecified, initial encounter; Y92.019 Unspecified place in single-family (private) house as the place of occurrence of the external cause; I25.2 Old myocardial infarction; Z88.1 Allergy status to other antibiotic agents; Z88.2 Allergy status to sulfonamides
CPT/HCPCS: 01210; 36415; 51702; 71045; 72170; 80053; 80307; 81001; 82550; 84484; 85025; 85027; 85610; 85730; 86850; 86900; 86901; 93005; 93010; 94667; 94799; 96374; 96375; 99285; C1776; C1887; J0171; J0690; J1580; J1650; J1885; J2250; J2270; J2405; J2704; J3010; J3370; J3490; J7060; L3650; S0119